=== PATIENT | male | born 1990 | race African-American/Black ===

== ENCOUNTER 2016-06-13 10:59 | Emergency (ER) | payer MEDICAID, OTHER ==
[2016-06-13] MEDS ORDERED: IPRATROPIUM-ALBUTEROL 3 ML NEB INHALATION STA (11:55)
--- NOTE | 2016-06-13 12:03 | ED ---
Fever HPI - General Chief Complaint: Fever Stated Complaint: Chest pain/cough Time Seen by Provider: 06/13/16 11:35 Source: patient, RN notes reviewed Mode of arrival: ambulatory Limitations: no limitations - History of Present Illness Initial Comments: States 25-year-old male presents emergency Department chief complaint URI symptoms. Patient states that he's been sick over the last 2 days. Patient went to fever, body aches, congestion and cough. Patient states his been taking ibuprofen for his fever. Patient denies ear pain, sore throat. Patient had multiple sick contacts. Patient is known drug ALLERGIES benign past medical history. - Related Data Home Medications Medication Instructions Recorded Confirmed D-Methorphan/PE/Acetaminophen 2 tab PO ONCE 06/13/16 06/13/16 [Tylenol Cold Max Day Caplet] Previous Rx's Medication Instructions Recorded Azithromycin [Zithromax Z-pack] 0 mg PO DIRECTED #1 pack 06/13/16 methylPREDNISolone [Medrol Dose 4 mg PO DIRECTED #1 pack 06/13/16 Pack] Allergies Allergy/AdvReac Type Severity Reaction Status Date / Time No Known Allergies Allergy Verified 06/13/16 11:36 Review of Systems ROS Statement: Those systems with pertinent positive or pertinent negative responses have been documented in the HPI. ROS Other: All systems not noted in ROS Statement are negative. Past Medical History Past Medical History: No Reported History History of Any Multi-Drug Resistant Organisms: None Reported Past Surgical History: No Surgical Hx Reported Past Psychological History: No Psychological Hx Reported Smoking Status: Current every day smoker Past Alcohol Use History: None Reported Past Drug Use History: Marijuana General Exam Limitations: no limitations General appearance: alert, in no apparent distress Head exam: Present: atraumatic, normocephalic, normal inspection Eye exam: Present: normal appearance, PERRL, EOMI. Absent: scleral icterus, conjunctival injection, periorbital swelling ENT exam: Present: normal exam, normal oropharynx, mucous membranes moist, TM's normal bilaterally, normal external ear exam Neck exam: Present: normal inspection, full ROM. Absent: tenderness, meningismus, lymphadenopathy Respiratory exam: Present: normal lung sounds bilaterally. Absent: respiratory distress, wheezes, rales, rhonchi, stridor Cardiovascular Exam: Present: regular rate, normal rhythm, normal heart sounds. Absent: systolic murmur, diastolic murmur, rubs, gallop, clicks Neurological exam: Present: alert, oriented X3, CN II-XII intact Skin exam: Present: warm, dry, intact, normal color. Absent: rash Course Vital Signs 06/13/16 06/13/16 06/13/16 11:13 12:18 12:23 Temperature 99.2 F 100.4 F H Pulse Rate 90 90 74 Respiratory 20 113 H Rate Blood Pressure 119/84 113/62 O2 Sat by Pulse 98 98 Oximetry 06/13/16 12:29 Temperature Pulse Rate 90 Respiratory Rate Blood Pressure O2 Sat by Pulse Oximetry Medical Decision Making - Medical Decision Making 25-year-old male present emergency department for cough congestion fever. Patient's influenza is negative. Patient does have some proximal muscle noted. Patient was treated for acute bronchitis. Patient will be discharged at this time. - Lab Data Lab Results 06/13/16 Range/Units 11:58 Influenza Type A RNA Not Detected (Not Detectd) Influenza Type B (PCR) Not Detected (Not Detectd) Disposition Clinical Impression: Acute bronchitis Disposition: HOME SELF-CARE Condition: Stable Instructions: Acute Bronchitis (ED) Additional Instructions: Please return to the Emergency Department if symptoms worsen or any other concerns. Prescriptions: Azithromycin [Zithromax Z-pack] 0 mg PO DIRECTED #1 pack methylPREDNISolone [Medrol Dose Pack] 4 mg PO DIRECTED #1 pack Time of Disposition: 12:50
--- NOTE | 2016-06-13 12:14 | XR ---
EXAMINATION TYPE: XR chest 2V DATE OF EXAM: 06/13/2016 12:08 PM COMPARISON: Prior chest x-ray August HISTORY: Cough and fever TECHNIQUE: Frontal and lateral views of the chest are obtained. FINDINGS: There is no focal air space opacity, pleural effusion, or pneumothorax seen. The cardiac silhouette size is within normal limits. The osseous structures are intact. IMPRESSION: No acute cardiopulmonary process. Follow-up as indicated.
[2016-06-13 13:06] VITALS: BP 118/62; PULSE 76; RESP 18; TEMP 99.9
== END 2016-06-13 13:06 | disposition home or self-care (01) ==
LOC: EC 10:59
DX: J20.9 Acute bronchitis, unspecified (principal); F17.200 Nicotine dependence, unspecified, uncomplicated
CPT/HCPCS: 71020; 87502; 94640; 99284

== ENCOUNTER 2016-06-21 09:36 | Observation (INO) | payer MEDICAID, OTHER ==
[2016-06-21] MEDS ORDERED: ACETAMINOPHEN TAB 500 MG TAB PO STA (10:18)
[2016-06-21] MEDS ORDERED: IBUPROFEN IV 600 MG in SODIUM CHLORIDE 0.9% 250 ML IV STA (10:18)
[2016-06-21] MEDS ORDERED: SODIUM CHLORIDE 0.9% 1,000 ML IV ONE ×2 (10:18→11:54)
[2016-06-21] MEDS ORDERED: ONDANSETRON 4 MG/2 ML VIAL IVP STA (10:20)
--- NOTE | 2016-06-21 10:20 | ED ---
General Adult HPI - General Chief complaint: Fever Stated complaint: flu symptoms Time Seen by Provider: 06/21/16 10:00 Source: patient, RN notes reviewed Mode of arrival: ambulatory Limitations: no limitations - History of Present Illness Initial comments: This is a 25-year-old male who presents emergency department stating he has a 2 day history of coughing body aches and fever. Patient states he did not get a flu shot. Patient states he also has been nauseous and has vomited a couple times. Patient denies any diarrhea. Patient denies any chest pain or palpitations. Patient denies any abdominal pain. Patient states she has a mild headache. He denies any numbness weakness. Patient denies any lightheadedness dizziness or near syncopal episode. Patient states his whole back aches but there is no specific area of pain. Patient denies any extremity pain swelling or skin lesions. - Related Data Home Medications Medication Instructions Recorded Confirmed Acetaminophen [Tylenol] 1,000 mg PO Q4-6H PRN 06/21/16 06/21/16 Albuterol Sulfate [Proair Hfa] 1 - 2 puff INHALATION RT-QID PRN 06/21/16 D-Methorphan/PE/Acetaminophen 2 cap PO ONCE PRN 06/21/16 06/21/16 [Vicks Dayquil Liquicaps] Allergies Allergy/AdvReac Type Severity Reaction Status Date / Time No Known Allergies Allergy Verified 06/21/16 10:20 Review of Systems ROS Statement: Those systems with pertinent positive or pertinent negative responses have been documented in the HPI. ROS Other: All systems not noted in ROS Statement are negative. Past Medical History Past Medical History: No Reported History History of Any Multi-Drug Resistant Organisms: None Reported Past Surgical History: No Surgical Hx Reported Past Psychological History: No Psychological Hx Reported Smoking Status: Current every day smoker Past Alcohol Use History: None Reported Past Drug Use History: Marijuana General Exam - General Exam Comments Initial Comments: GENERAL: Patient is well-developed and well-nourished. Patient is nontoxic and well- hydrated and is in mild distress. ENT: Neck is soft and supple. No significant lymphadenopathy is noted. Oropharynx is clear. Moist mucous membranes. Neck has full range of motion without eliciting any pain. EYES: The sclera were anicteric and conjunctiva were pink and moist. Extraocular movements were intact and pupils were equal round and reactive to light. Eyelids were unremarkable. PULMONARY: Unlabored respirations. Good breath sounds bilaterally. No audible rales rhonchi or wheezing was noted. CARDIOVASCULAR: There is a regular rate and rhythm without any murmurs gallops or rubs. ABDOMEN: Soft and nontender with normal bowel sounds. No palpable organomegaly was noted. There is no palpable pulsatile mass. SKIN: Skin is clear with no lesions or rashes and otherwise unremarkable. NEUROLOGIC: Patient is alert and oriented x3. Cranial nerves II through XII are grossly intact. Motor and sensory are also intact. Normal speech, volume and content. Symmetrical smile. MUSCULOSKELETAL: Normal extremities with adequate strength and full range of motion. No lower extremity swelling or edema. No calf tenderness. LYMPHATICS: No significant lymphadenopathy is noted PSYCHIATRIC: Normal psychiatric evaluation. Normal interpersonal interactions appears functionally intact in deals appropriately with others. No signs of depression. No signs of anxiety. Limitations: no limitations Course Vital Signs 06/21/16 09:50 Temperature 101.6 F H Pulse Rate 98 Respiratory 18 Rate Blood Pressure 106/79 O2 Sat by Pulse 97 Oximetry Medical Decision Making - Medical Decision Making Chest x-ray shows a right lower lobe pneumonia - Lab Data Result diagrams: 06/21/16 10:30 06/21/16 10:30 Lab Results 06/21/16 06/21/16 06/21/16 Range/Units 10:30 10:30 10:30 WBC 30.6 H* (3.8-10.6) k/uL RBC 4.65 (4.30-5.90) m/uL Hgb 14.2 (13.0-17.5) gm/dL Hct 41.7 (39.0-53.0) % MCV 89.7 (80.0-100.0) fL MCH 30.7 (25.0-35.0) pg MCHC 34.2 (31.0-37.0) g/dL RDW 13.0 (11.5-15.5) % Plt Count 376 (150-450) k/uL Neutrophils % (Manual) 76.5 % Band Neutrophils % 5.0 % Lymphocytes % (Manual) 6.5 % Monocytes % (Manual) 12.0 % Neutrophils # (Manual) 24.9 H (1.3-7.7) k/uL Lymphocytes # (Manual) 2.0 (1.0-4.8) k/uL Monocytes # (Manual) 3.7 H (0-1.0) k/uL Nucleated RBCs 0 (0-0) /100 WBC Manual Slide Review Performed Toxic Granulation Present Toxic Vacuolation Present RBC Morphology Normal Sodium 139 (137-145) mmol/L Potassium 4.2 (3.5-5.1) mmol/L Chloride 98 (98-107) mmol/L Carbon Dioxide 26 (22-30) mmol/L Anion Gap 15 mmol/L BUN 12 (9-20) mg/dL Creatinine 1.04 (0.66-1.25) mg/dL Est GFR (MDRD) Af Amer >60 (>60 ml/min/1.73 sqM) Est GFR (MDRD) Non-Af >60 (>60 ml/min/1.73 sqM) Glucose 109 H (74-99) mg/dL Calcium 9.8 (8.4-10.2) mg/dL Total Bilirubin 1.1 (0.2-1.3) mg/dL AST 29 (17-59) U/L ALT 33 (21-72) U/L Alkaline Phosphatase 73 (38-126) U/L Total Protein 8.1 (6.3-8.2) g/dL Albumin 4.5 (3.5-5.0) g/dL Influenza Type A RNA Not Detected (Not Detectd) Influenza Type B (PCR) Not Detected (Not Detectd) Disposition Clinical Impression: Pneumonia Disposition: ADMITTED IP TO THIS [facility] Referrals: None,Stated [Primary Care Provider] - 1-2 days Time of Disposition: 11:52
[2016-06-21 10:54] LABS: CH 30.3; HCT 41.7 % (39.0-53.0); HDW 2.11; HGB 14.2 gm/dL (13.0-17.5); Immature Gran Flag Marked; MCH 30.7 pg (25.0-35.0); MCHC 34.2 g/dL (31.0-37.0); MCV 89.7 fL (80.0-100.0); RBC 4.65 m/uL (4.30-5.90); WBC (Perox) 31.03
[2016-06-21 10:59] LABS: WBC 30.6 k/uL (3.8-10.6)
[2016-06-21 11:00] LABS: ALT 33 U/L (21-72); AST 29 U/L (17-59); Alkaline Phosphatase 73 U/L (38-126); Anion Gap 15 mmol/L; Blood Urea Nitrogen 12 mg/dL (9-20); Calcium 9.8 mg/dL (8.4-10.2); Carbon Dioxide 26 mmol/L (22-30); Chloride 98 mmol/L (98-107); Glucose 109 mg/dL (74-99); Non-African American GFR(MDRD) >60 (>60 ml/min/1.73 sqM); Potassium 4.2 mmol/L (3.5-5.1); Sodium 139 mmol/L (137-145); Total Bilirubin 1.1 mg/dL (0.2-1.3); Total Protein 8.1 g/dL (6.3-8.2)
--- NOTE | 2016-06-21 11:32 | XR ---
EXAMINATION TYPE: XR chest 2V DATE OF EXAM: 06/21/2016 11:15 AM COMPARISON: 06/13/2016 HISTORY: Difficulty breathing TECHNIQUE: Frontal and lateral views of the chest are obtained. FINDINGS: There is no focal air space opacity, pleural effusion, or pneumothorax seen. The cardiac silhouette size is within normal limits. The osseous structures are intact. IMPRESSION: No acute cardiopulmonary process.
[2016-06-21 11:41] LABS: Add Differential Manual Differential
[2016-06-21 11:43] LABS: Manual Review Performed; Nucleated Red Blood Cells 0 /100 WBC (0-0); RBC Morphology Normal; Total Cells Counted 200
[2016-06-21 11:44] LABS: Toxic Granulation Present; Toxic Vacuolation Present
[2016-06-21] MEDS ORDERED: LEVOFLOXACIN 750MG-D5W PMX 750 MG in DEXTROSE/WATER 1 150ML.BAG IVPB STA (11:49)
[2016-06-21] MEDS ORDERED: PNEUMONIA PROTOCOL UTILIZED 1 EACH MISC PO PRN (11:52)
[2016-06-21] MEDS ORDERED: MORPHINE SULFATE 2 MG/ML SYRINGE IVP ONE (11:56)
--- NOTE | 2016-06-21 13:25 | P.HPIM ---
History of Present Illness H&P Date: 06/21/16 Chief Complaint: Shortness of breath fever chills 25-year-old male presented on the day of admission to the emergency room with a chief complaint of waking up last night with generalized body aches fever chills nausea vomiting and inability keep fluids down. Patient stated he felt dizzy lightheaded like he could pass out. In the emergency room the temp was 101.6 area tachycardic heart rate in the 90s the white count of 30.6 chest x-ray suggest right lower lobe pneumonia patient has no significant past medical history Patient states that he was in the emergency room on June 13 at that time was treated for upper respiratory infection. Patient stated was given a prescription for Medrol Dosepak and a Z-Herve antibiotic he did take them as directed. He stated that he was told he had acute bronchitis. He stated that he completed the course of treatment but continued to feel worse came into the emergency room for the above-mentioned symptoms. no significant past medical history there is been no sick contacts and no other family members are sick influenza A and B was negative on June 13 repeat influenza A and B this admission was negative Review of Systems Essentially unremarkable except as mentioned in the present illness Past Medical History Past Medical History: No Reported History History of Any Multi-Drug Resistant Organisms: None Reported Past Surgical History: No Surgical Hx Reported Past Psychological History: No Psychological Hx Reported Smoking Status: Current every day smoker Past Alcohol Use History: None Reported Past Drug Use History: Marijuana Medications and Allergies Home Medications Medication Instructions Recorded Confirmed Type Acetaminophen [Tylenol] 1,000 mg PO Q4-6H PRN 06/21/16 06/21/16 History Albuterol Sulfate [Proair Hfa] 1 - 2 puff INHALATION RT-QID PRN 06/21/16 History D-Methorphan/PE/Acetaminophen 2 cap PO ONCE PRN 06/21/16 06/21/16 History [Vicks Dayquil Liquicaps] Allergies Allergy/AdvReac Type Severity Reaction Status Date / Time No Known Allergies Allergy Verified 06/21/16 10:20 Physical Exam Vitals: Vital Signs Temp Pulse Resp BP Pulse Ox 06/21/16 12:09 99.6 F 82 15 140/66 99 GENERAL APPEARANCE: 25-year-old -[place] male patient is alert, oriented 3, in no acute distress. VITAL SIGNS: Reviewed HEENT: Head is normocephalic and atraumatic. Pupils are equal and reactive. The nares are patent. Oropharynx is clear without lesions. NECK: Supple without lymphadenopathy. Traches midline. HEART: S1, S2. Regular rate and rhythm. No murmur noted LUNGS: No crackles or wheezes are heard. Adequate air movement bilaterally no cough noted ABDOMEN: Soft, nontender, nondistended with good bowel sounds. No peritoneal signs. No palpable organomegaly or masses. EXTREMITIES: Normal skin color and turgor. No cyanosis, rash, ulceration, clubbing or edema. Radial pedal pulses are 2/4 bilaterally. NEUROLOGICAL: No focal deficits. Strength and sensation are grossly intact. Results CBC & Chem 7: 06/21/16 10:30 06/21/16 10:30 Assessment and Plan Plan: Impression Present on admission fever chills tachycardic leukocytosis meet SIRS criteria suspect sepsis right lobe pneumonia failed outpatient treatment A recent admission June 13 to the emergency room treated for an upper respiratory infection with a Z-Herve and Medrol Dosepak no improvement Recent treatment for bronchitis Plan Consult infectious disease for the elevated leukocytosis Strep screen DuoNeb respiratory treatments as ordered GI and DVT prophylaxis Further recommendations pending The above dictated assessment and findings were discussed with dr carter . Impression and the plan of care have been dictated as directed. Rose Song nurse practitioner acting as a scribe for dr carter
[2016-06-21] MEDS: FAMOTIDINE 20 MG TAB PO SCH ×2 (14:26→20:07)
[2016-06-21] MEDS: traZODone HCL 50 MG TAB PO PRN (20:04)
[2016-06-22] MEDS: ACETAMINOPHEN TAB 325 MG TAB PO PRN (03:53)
--- NOTE | 2016-06-22 05:58 | HP ---
DATE OF ADMISSION: CHIEF COMPLAINT: Cough, fever, chills and pneumonitis. HISTORY OF PRESENT ILLNESS: This is the first admission for this 25-year-old male. He has had a cough and congestion for about 4 days. He was getting more short of breath and had a temp. He came to emergency room where he had an elevated white count and bronchopneumonia. He is otherwise healthy. He has never had asthma. REVIEW OF SYSTEMS: He has had no syncope, neurologic problems, difficulty with vision or the hearing, lung disease, asthma, heart disease, hypertension, abdominal pain, nausea, vomiting, hematemesis, jaundice, hepatitis, hematuria, frequency, diabetes, etc. Past medical history, family history, and personal and social histories reveal he has had no allergies. He is not on medication. He has had no surgery. He smokes 1 or 2 cigarettes a day. PHYSICAL EXAMINATION: Blood pressure 121/73 with a pulse of 88, respirations of 29 and temperature of 100. GENERAL: He appeared to be ( ), well developed, well nourished, no acute distress. Skin color is normal. Skin is warm and dry. Lymph nodes are not enlarged. Head, ears, eyes, nose, mouth, and throat were normal. Neck veins not distended. Thyroid is not enlarged. Chest demonstrates rales and rhonchi bilaterally. Cardiac exam is normal sinus rhythm with no murmurs. ABDOMEN: Soft and nontender. There are no masses. EXTREMITIES: Normal. NEUROLOGIC: He is intact. IMPRESSION: Bronchopneumonia. PLAN: 1. Bed rest. 2. IV fluids. 3. IV antibiotics. 4. Updrafts.
[2016-06-22] MEDS: FAMOTIDINE 20 MG TAB PO SCH ×2 (07:49→19:32)
--- NOTE | 2016-06-22 07:58 | XR ---
EXAMINATION TYPE: XR chest 2V DATE OF EXAM: 06/22/2016 7:46 AM COMPARISON: Chest x-ray from yesterday and older studies back through 2011. HISTORY: Pneumonia progress study. TECHNIQUE: Frontal and lateral views of the chest are obtained. FINDINGS: There is no new focal air space opacity, pleural effusion, or pneumothorax seen. Right me dial basilar opacity is unchanged. The cardiac silhouette size is within normal limits. The osseou s structures are intact. IMPRESSION: Possible right medial basilar infiltrate is unchanged. No new infiltrate is seen.
[2016-06-22 08:05] LABS: Basophils # (A) 0.1 k/uL (0-0.2); Basophils % (A) 0 %; CH 30.1; CHCM 32.7; Eosinophils # (A) 0.1 k/uL (0-0.7); Eosinophils % (A) 0 %; HCT 39.5 % (39.0-53.0); HDW 2.16; HGB 13.2 gm/dL (13.0-17.5); Luc # (Auto) 0.36; Luc % (Auto) 2; Lymphocytes # (A) 3.5 k/uL (1.0-4.8); Lymphocytes % (A) 20 %; MCHC 33.5 g/dL (31.0-37.0); MCV 92.7 fL (80.0-100.0); Mean Platelet Volume 6.7; Monocytes # (A) 0.9 k/uL (0-1.0); Monocytes % (A) 5 %; Neutrophils # (A) 12.7 k/uL (1.3-7.7); Neutrophils % (A) 73 %; RBC 4.26 m/uL (4.30-5.90); RDW 13.1 % (11.5-15.5); WBC 17.6 k/uL (3.8-10.6); WBC (Perox) 18.31
[2016-06-22] MEDS: LEVOFLOXACIN 750MG-D5W PMX 750 MG in DEXTROSE/WATER 1 150ML.BAG IVPB SCH (11:52)
[2016-06-22] MEDS: guaiFENesin-Coden 100-10MG/5ML 10 ML CUP PO PRN ×2 (13:40→19:32)
--- NOTE | 2016-06-22 17:31 | PN ---
DATE OF SERVICE: 06/22/2016 CHIEF COMPLAINT: Pneumonia. History of present illness: This gentleman is doing well and he is doing better. He is not coughing as much. ( ). PHYSICAL EXAMINATION: He has rales and rhonchi ( ) heard bilaterally. Cardiac exam normal. ( ). ABDOMEN: Soft, nontender. IMPRESSION: Pneumonitis. PLAN: No change in program.
[2016-06-22] MEDS: traZODone HCL 50 MG TAB PO PRN (19:32)
--- NOTE | 2016-06-22 22:18 | CONS ---
DATE OF CONSULTATION: 06/22/2016 REASON FOR CONSULTATION: Pneumonia, antibiotic recommendation. HISTORY OF PRESENT ILLNESS: The patient is a 25-year-old male who presented to the ER with chief complaint of generalized body aches, fever and chills, nausea, and inability to keep anything down. The patient also complaining of cough which is mostly dry in nature. No significant pleuritic chest pain. The patient was recently evaluated at the [facility]. The patient diagnosed with possible bronchitis and was discharged on a steroid and antibiotics. Patient is not sure about the name of the antibiotics. The patient on arrival to the ER did have a chest x-ray, the right mid lung base infiltrate. The patient did have an elevated white count of 30,000 with a fever of 101.6. The patient has been admitted to the hospital. He was started on Rocephin and Levaquin. I was asked to see the patient for further recommendations regarding antibiotic therapy. As of yesterday, the patient's fever has resolved. He is feeling slightly better. Still complaining of dry hacking cough and intensity the same. REVIEW OF SYSTEMS: CONSTITUTIONAL: Positive for weakness along with a fever. EYES: No complaint. ENT: No complaint. RESPIRATORY: As per HPI. CARDIOVASCULAR: Complaint. GENITOURINARY: No complaint. GASTROINTESTINAL: No complaint. MUSCULOSKELETAL: No complaint. INTEGUMENTARY: No complaint. PSYCHOLOGIC: No complaint. ENDOCRINE: No complaint. NEUROLOGIC: No complaint. PAST MEDICAL HISTORY: No major illnesses. PAST SURGICAL HISTORY: No surgeries. SOCIAL HISTORY: The patient is currently an every day smoker. Smokes about a pack a day. The patient denies any drink though admits to marijuana use. The patient is sexually active with a [facility] partner and denies any risk factors for HIV. ALLERGIES: No known drug allergies. MEDICATIONS: Currently the patient is on: 1. Tylenol. 2. Rocephin. 3. Pepcid. 4. Levofloxacin. 5. Trazodone. On examination, blood pressure is 106/58 with a pulse of 79, temperature 98.1. T-max is 101. He is 100% on room air. General description is a young male, lying in bed in no distress. No tachypnea or accessory muscle of respiration use. HEENT examination shows no pallor or scleral icterus. Oral mucous membrane is dry and pink and no thrush. NECK: Trachea central. There is no thyromegaly. LUNGS: Unlabored breathing. Some coarse breath sounds on the right side. No wheeze. HEART: S1, S2. Regular rate and rhythm. ABDOMEN: Soft, nontender. EXTREMITIES: No edema of feet. SKIN: No rash. No mass palpable. NEUROLOGICAL: The patient is awake, alert, oriented x3. Mood and affect normal. LABORATORY DATA: Hemoglobin is 13.2, white count down and the patient's white count on admission was 30,000 with a BUN of 12, creatinine 1.04. Influenza A and B has been negative. Blood cultures obtained, currently pending, sputum not collected. DIAGNOSTIC IMPRESSION AND PLAN: Patient with sepsis in a patient who presented to the hospital with fever of 101 degrees Fahrenheit. The patient also had elevated white count of 30,000 that could had been related to steroid the patient has been on, however, source of sepsis is right lobe pneumonia, likely community-acquired in view of overall response to the fever with Rocephin and Levaquin. Though the patient denied any risk factors for HIV and has refused HIV testing. PLAN: 1. Will try to obtain sputum for gram stain culture and sensitivity. 2. The patient will continue Rocephin 1 mg daily along with Levaquin. 3. Will order tesselon pearls for cough. 4. Will follow up on the clinical condition and cultures to further adjust the medication if needed. Thank you for this consultation. Will follow the patient along with you. DOE
[2016-06-23] MEDS: guaiFENesin-Coden 100-10MG/5ML 10 ML CUP PO PRN (05:13)
[2016-06-23] MEDS: ACETAMINOPHEN TAB 325 MG TAB PO PRN (05:13)
[2016-06-23 07:37] VITALS: RESP 18; TEMP 97.4
[2016-06-23] MEDS: FAMOTIDINE 20 MG TAB PO SCH (08:10)
[2016-06-23 09:50] LABS: Basophils % (A) 0 %; CH 30.1; CHCM 32.3; Eosinophils # (A) 0.1 k/uL (0-0.7); Eosinophils % (A) 1 %; HCT 38.1 % (39.0-53.0); HDW 2.16; Luc # (Auto) 0.23; Luc % (Auto) 3; Lymphocytes # (A) 2.4 k/uL (1.0-4.8); Lymphocytes % (A) 28 %; MCH 29.4 pg (25.0-35.0); MCHC 31.5 g/dL (31.0-37.0); MCV 93.4 fL (80.0-100.0); Mean Platelet Volume 6.2; Monocytes # (A) 0.5 k/uL (0-1.0); Monocytes % (A) 6 %; Neutrophils # (A) 5.4 k/uL (1.3-7.7); Neutrophils % (A) 62 %; RBC 4.08 m/uL (4.30-5.90); RDW 13.2 % (11.5-15.5); WBC 8.6 k/uL (3.8-10.6); WBC (Perox) 8.61
--- NOTE | 2016-06-23 11:06 | P.DS ---
Providers Date of admission: 06/21/16 11:53 Expected date of discharge: 06/23/16 Attending physician: Avelino Carter Consults: 06/21/16 13:04 Consult Physician Urgent Consulting Provider: Roro Melendez Consult Reason/Comments: Recommendations antibiotic Do you want consulting provider notified?: Yes Primary care physician: Stated None Hospital Course: Patient states that he was in the emergency room on June 13 at that time was treated for upper respiratory infection. Patient stated was given a prescription for Medrol Dosepak and a Z-Herve antibiotic he did take them as directed. He stated that he was told he had acute bronchitis. He stated that he completed the course of treatment but continued to feel worse came into the emergency room for the above-mentioned symptoms. no significant past medical history there is been no sick contacts and no other family members are sick influenza A and B was negative on June 13 repeat influenza A and B this admission was negative Symptoms significantly improve patient was started on IV antibiotic therapy monitored white count trend down attempt at the time of discharge was 97.4 the patient did have a strep culture done that was pending but the rapid strep screen was negative Impression discharge diagnose Present on admission leukocytosis suspect due to steroids taken one week prior Present on admission fever chills tachycardic leukocytosis meet SIRS criteria suspect sepsis right lobe pneumonia failed outpatient treatment A recent admission June 13 to the emergency room treated for an upper respiratory infection with a Z-Herve and Medrol Dosepak no improvement Recent treatment for bronchitis Persistent leukocytosis trending down History of asthma mild The above dictated assessment and findings were discussed with dr carter . Impression and the plan of care have been dictated as directed. Rose Song nurse practitioner acting as a scribe for dr carter ]. Plan - Discharge Summary New Discharge Prescriptions: Cefuroxime Axetil [Ceftin] 500 mg PO BID #20 tab Discharge Medication List Acetaminophen [Tylenol] 1,000 mg PO Q4-6H PRN 06/21/16 [History] Albuterol Sulfate [Proair Hfa] 1 - 2 puff INHALATION RT-QID PRN 06/21/16 [ History] D-Methorphan/PE/Acetaminophen [Vicks Dayquil Liquicaps] 2 cap PO ONCE PRN [History] Cefuroxime Axetil [Ceftin] 500 mg PO BID #20 tab 06/23/16 [Rx] Follow up Appointment(s)/Referral(s): None,Stated [Primary Care Provider] - 1-2 days Avelino Carter MD [STAFF PHYSICIAN] - 06/26/16 Discharge Disposition: HOME SELF-CARE
[2016-06-23] MEDS: LEVOFLOXACIN 750MG-D5W PMX 750 MG in DEXTROSE/WATER 1 150ML.BAG IVPB SCH (11:10)
[2016-06-23] MEDS ORDERED: ONDANSETRON 4 MG TAB PO ONE (12:49)
[2016-06-23] MEDS ORDERED: ONDANSETRON ODT 4 MG TAB PO ONE (13:15)
--- NOTE | 2016-06-23 14:29 | PN ---
CHIEF COMPLAINT: Pneumonitis. HISTORY OF PRESENT ILLNESS: The gentleman is doing well. He is feeling better and is not coughing up very much. He has been afebrile and he has not ( ) short of breath. PHYSICAL EXAM: Breath sounds are quite good. Cardiac exam is normal. IMPRESSION: Resolving bronchopneumonia. PLAN: Probably home later today and this will be arranged by the nurse practitioner.
[2016-06-23 14:51] VITALS: BP 121/75; PULSE 61
--- NOTE | 2016-06-23 16:39 | PN ---
DATE OF SERVICE: 06/23/2016 Reason for follow-up: Community acquired pneumonia. INTERVAL HISTORY: The patient is afebrile and while his breathing has improved, cough is significantly improved. Denies any chest pain, abdominal pain. He did have feeling nauseated after he had his supper but no vomiting and no diarrhea. On examination, blood pressure is 112/74 with a pulse of 58, temperature 97.4, he is 100% on room air. General description is a young male, lying in bed in no distress. RESPIRATORY SYSTEM: Unlabored breathing. Clear to auscultation anteriorly. HEART: S1, S2 regular rate and rhythm. ABDOMEN: Soft, no tenderness. EXTREMITIES: No edema of feet. LABS: Hemoglobin is 12, with a white count of 8.6. Blood cultures have been negative. Sputum culture is currently pending. DIAGNOSTIC IMPRESSION AND PLAN: Patient admitted to hospital with sepsis with fever with elevated white count, source likely pneumonia, community acquired. However, did well on Rocephin and Levaquin. Plan to finish therapy with p.o. Ceftin 500 mg twice a day for another 10 days with further outpatient follow-up. [facility]
== END 2016-06-23 15:08 | disposition home or self-care (01) ==
LOC: EC 09:36 → INTOOBSV 11:53 → 4MS4W 11:53
PROVIDERS: ADMIT Family Medicine; ATTEND Family Medicine
DX: J18.0 Bronchopneumonia, unspecified organism (principal); J45.909 Unspecified asthma, uncomplicated; J06.9 Acute upper respiratory infection, unspecified; D72.829 Elevated white blood cell count, unspecified; R50.9 Fever, unspecified; M54.9 Dorsalgia, unspecified; R00.0 Tachycardia, unspecified; R11.2 Nausea with vomiting, unspecified; F12.90 Cannabis use, unspecified, uncomplicated; F17.200 Nicotine dependence, unspecified, uncomplicated; Z79.899 Other long term (current) drug therapy
CPT/HCPCS: 96361 ×2; 96365 ×2; 96375 ×3; 36415; 99284 ×2; 80053; 83605; 85025 ×3; 87040; 87070; 87205; 87081; 87430; 87502; 71020 ×2; G0378 ×3; J2405; J0696 ×3; J2270; J1956 ×3; J1741; 96366; 96367

== ENCOUNTER 2018-08-18 07:06 | Emergency (ER) | payer MEDICAID, OTHER ==
[2018-08-18 07:26] VITALS: TEMP 98.4
[2018-08-18 07:39] VITALS: RESP 18
--- NOTE | 2018-08-18 07:44 | ED ---
General Adult HPI - General Chief complaint: Upper Respiratory Infection Stated complaint: coughing Time Seen by Provider: 08/18/18 07:10 Source: patient, RN notes reviewed Mode of arrival: ambulatory Limitations: no limitations - History of Present Illness Initial comments: This is a 28-year-old male who presents emergency Department complaining of 2 d ay history of sore throat and states since yesterday he also has been coughing and coughing up some sputum. Patient denies any shortness of breath or difficulty breathing. Patient denies any fever chills per patient denies any chest pain or soreness. Patient denies any abdominal pain patient denies any nausea vomiting. Patient denies any headache patient denies numbness weakness. Patient denies any lightheadedness. Patient denies any rashes. Patient denies any back pain. Patient denies any swelling to the legs or calf tenderness. - Related Data Home Medications Medication Instructions Recorded Confirmed Acetaminophen [Tylenol] 1,000 mg PO Q4-6H PRN 06/21/16 06/21/16 Albuterol Sulfate [Proair Hfa] 1 - 2 puff INHALATION RT-QID PRN 06/21/16 D-Methorphan/PE/Acetaminophen 2 cap PO ONCE PRN 06/21/16 06/21/16 [Vicks Dayquil Liquicaps] Previous Rx's Medication Instructions Recorded Cefuroxime Axetil [Ceftin] 500 mg PO BID #20 tab 06/23/16 Allergies Allergy/AdvReac Type Severity Reaction Status Date / Time No Known Allergies Allergy Verified 08/18/18 07:26 Review of Systems ROS Statement: Those systems with pertinent positive or pertinent negative responses have been documented in the HPI. ROS Other: All systems not noted in ROS Statement are negative. Past Medical History Past Medical History: No Reported History History of Any Multi-Drug Resistant Organisms: None Reported Past Surgical History: No Surgical Hx Reported Past Psychological History: No Psychological Hx Reported Smoking Status: Current every day smoker Past Alcohol Use History: None Reported Past Drug Use History: Marijuana General Exam - General Exam Comments Initial Comments: GENERAL: Patient is well-developed and well-nourished. Patient is nontoxic and well- hydrated and is in no acute distress. ENT: Neck is soft and supple. No significant lymphadenopathy is noted. Oropharynx is clear. Moist mucous membranes. Neck has full range of motion without eliciting any pain. EYES: The sclera were anicteric and conjunctiva were pink and moist. Extraocular movements were intact and pupils were equal round and reactive to light. Eyelids were unremarkable. PULMONARY: Unlabored respirations. Good breath sounds bilaterally. No audible rales rhon chi or wheezing was noted. CARDIOVASCULAR: There is a regular rate and rhythm without any murmurs gallops or rubs. ABDOMEN: Soft and nontender with normal bowel sounds. SKIN: Skin is clear with no lesions or rashes and otherwise unremarkable. NEUROLOGIC: Patient is alert and oriented x3. Cranial nerves II through XII are grossly intact. Motor and sensory are also intact. Normal speech, volume and content. Symmetrical smile. MUSCULOSKELETAL: Normal extremities with adequate strength and full range of motion. No lower extremity swelling or edema. No calf tenderness. LYMPHATICS: No significant lymphadenopathy is noted PSYCHIATRIC: Normal psychiatric evaluation. Limitations: no limitations Course Vital Signs 08/18/18 08/18/18 08/18/18 07:23 07:36 10:09 Temperature 98.4 F Pulse Rate 77 57 L Respiratory 16 18 18 Rate Blood Pressure 122/80 118/82 O2 Sat by Pulse 97 100 Oximetry Medical Decision Making - Medical Decision Making I read the nurse's notes and she indicated the patient had some hemoptysis I spoke with the patient he said he did have one episode where he coughed up some blood. Chest x-ray shows no acute abnormality. Patient's d-dimer was mildly elevated so I did a CAT scan CAT scan showed no PE. - Lab Data Result diagrams: 08/18/18 09:14 08/18/18 09:14 Lab Results 08/18/18 08/18/18 08/18/18 Range/Units 07:46 09:14 09:14 WBC 11.4 H (3.8-10.6) k/uL RBC 4.59 (4.30-5.90) m/uL Hgb 13.9 (13.0-17.5) gm/dL Hct 42.5 (39.0-53.0) % MCV 92.5 (80.0-100.0) fL MCH 30.2 (25.0-35.0) pg MCHC 32.7 (31.0-37.0) g/dL RDW 14.3 (11.5-15.5) % Plt Count 305 (150-450) k/uL Neutrophils % 70 % Lymphocytes % 19 % Monocytes % 7 % Eosinophils % 2 % Basophils % 0 % Neutrophils # 8.0 H (1.3-7.7) k/uL Lymphocytes # 2.2 (1.0-4.8) k/uL Monocytes # 0.8 (0-1.0) k/uL Eosinophils # 0.2 (0-0.7) k/uL Basophils # 0.0 (0-0.2) k/uL D-Dimer (<0.60) mg/L FEU Sodium 142 (137-145) mmol/L Potassium 4.6 (3.5-5.1) mmol/L Chloride 109 H (98-107) mmol/L Carbon Dioxide 29 (22-30) mmol/L Anion Gap 4 mmol/L BUN 8 L (9-20) mg/dL Creatinine 0.90 (0.66-1.25) mg/dL Est GFR (CKD-EPI)AfAm >90 (>60 ml/min/1.73 sqM) Est GFR (CKD-EPI)NonAf >90 (>60 ml/min/1.73 sqM) Glucose 99 (74-99) mg/dL Calcium 9.6 (8.4-10.2) mg/dL Total Bilirubin 0.5 (0.2-1.3) mg/dL AST 22 (17-59) U/L ALT 19 L (21-72) U/L Alkaline Phosphatase 52 (38-126) U/L Total Protein 6.5 (6.3-8.2) g/dL Albumin 3.9 (3.5-5.0) g/dL Group A Strep Rapid Negative (Negative) 08/18/18 Range/Units 09:24 WBC (3.8-10.6) k/uL RBC (4.30-5.90) m/uL Hgb (13.0-17.5) gm/dL Hct (39.0-53.0) % MCV (80.0-100.0) fL MCH (25.0-35.0) pg MCHC (31.0-37.0) g/dL RDW (11.5-15.5) % Plt Count (150-450) k/uL Neutrophils % % Lymphocytes % % Monocytes % % Eosinophils % % Basophils % % Neutrophils # (1.3-7.7) k/uL Lymphocytes # (1.0-4.8) k/uL Monocytes # (0-1.0) k/uL Eosinophils # (0-0.7) k/uL Basophils # (0-0.2) k/uL D-Dimer 0.63 H (<0.60) mg/L FEU Sodium (137-145) mmol/L Potassium (3.5-5.1) mmol/L Chloride (98-107) mmol/L Carbon Dioxide (22-30) mmol/L Anion Gap mmol/L BUN (9-20) mg/dL Creatinine (0.66-1.25) mg/dL Est GFR (CKD-EPI)AfAm (>60 ml/min/1.73 sqM) Est GFR (CKD-EPI)NonAf (>60 ml/min/1.73 sqM) Glucose (74-99) mg/dL Calcium (8.4-10.2) mg/dL Total Bilirubin (0.2-1.3) mg/dL AST (17-59) U/L ALT (21-72) U/L Alkaline Phosphatase (38-126) U/L Total Protein (6.3-8.2) g/dL Albumin (3.5-5.0) g/dL Group A Strep Rapid (Negative) Disposition Clinical Impression: Upper respiratory infection Disposition: HOME SELF-CARE Condition: Good Instructions (If sedation given, give patient instructions): Upper Respiratory Infection (ED) Is patient prescribed a controlled substance at d/c from ED?: No Referrals: None,Stated [Primary Care Provider] - 1-2 days Time of Disposition: 11:15
--- NOTE | 2018-08-18 08:02 | XR ---
EXAMINATION TYPE: XR chest 2V DATE OF EXAM: 08/18/2018 HISTORY: Difficulty breathing . REFERENCE: Previous study dated 06/22/2016. FINDINGS: The lungs are clear. Pleural space are clear. The heart is not enlarged. IMPRESSION: NORMAL CHEST.
[2018-08-18 09:26] LABS: Basophils % (A) 0 %; Eosinophils # (A) 0.2 k/uL (0-0.7); Eosinophils % (A) 2 %; HCT 42.5 % (39.0-53.0); HGB 13.9 gm/dL (13.0-17.5); Lymphocytes # (A) 2.2 k/uL (1.0-4.8); Lymphocytes % (A) 19 %; MCH 30.2 pg (25.0-35.0); MCHC 32.7 g/dL (31.0-37.0); MCV 92.5 fL (80.0-100.0); Mean Platelet Volume 6.7; Monocytes # (A) 0.8 k/uL (0-1.0); Monocytes % (A) 7 %; Neutrophils % (A) 70 %; Platelet Count 305 k/uL (150-450); RBC 4.59 m/uL (4.30-5.90); RDW 14.3 % (11.5-15.5); WBC 11.4 k/uL (3.8-10.6)
[2018-08-18 09:35] LABS: ALT 19 U/L (21-72); AST 22 U/L (17-59); Albumin 3.9 g/dL (3.5-5.0); Alkaline Phosphatase 52 U/L (38-126); Anion Gap 4 mmol/L; Blood Urea Nitrogen 8 mg/dL (9-20); Calcium 9.6 mg/dL (8.4-10.2); Carbon Dioxide 29 mmol/L (22-30); Chloride 109 mmol/L (98-107); Glucose 99 mg/dL (74-99); Potassium 4.6 mmol/L (3.5-5.1); Sodium 142 mmol/L (137-145); Total Bilirubin 0.5 mg/dL (0.2-1.3); Total Protein 6.5 g/dL (6.3-8.2)
[2018-08-18 10:12] VITALS: BP 118/82; PULSE 57
--- NOTE | 2018-08-18 10:51 | CT ---
EXAMINATION TYPE: CT chest angio for PE DATE OF EXAM: 08/18/2018 COMPARISON: None. HISTORY: Coughing, chest pain and possible pe CT DLP: 443.4 mGycm Automated exposure control for dose reduction was used. CONTRAST: CT Chest for pulmonary embolism performed with without and with IV Contrast, patient injected with 10 0 ml mL of Isovue 370. FINDINGS: Visualized portions of the lungs are clear. There is no significant axillary, mediastinal or hilar adenopathy. There is no evidence of pulmonary embolus. The aorta is normal in size without evidence of dissection. The heart is mildly enlarged. There is no pleural or pericardial fluid. Visualized portions of the upper abdomen are unremarkable. No bony lesion is seen. IMPRESSION: 1. THIS EXAMINATION IS NEGATIVE FOR PULMONARY EMBOLUS. 2. MILD CARDIOMEGALY.
== END 2018-08-18 11:24 | disposition home or self-care (01) ==
LOC: EC 07:06
DX: J06.9 Acute upper respiratory infection, unspecified (principal); R04.2 Hemoptysis; F17.200 Nicotine dependence, unspecified, uncomplicated
CPT/HCPCS: 36415; 85379; 80053; 85025; 87081; 87430; 71046; 71275; 99284; Q9967

== ENCOUNTER 2019-02-24 06:20 | Emergency (ER) | payer OTHER ==
[2019-02-24 06:26] VITALS: BP 117/74; PULSE 92; RESP 20; TEMP 98.7
[2019-02-24] MEDS ORDERED: diphenhydrAMINE 50 MG/ML 1 ML VIAL IVP STA (06:28)
[2019-02-24] MEDS ORDERED: ONDANSETRON 4 MG/2 ML VIAL IVP STA (06:28)
[2019-02-24] MEDS ORDERED: SODIUM CHLORIDE 0.9% 2,000 ML IV STA (06:28)
[2019-02-24] MEDS ORDERED: KETOROLAC 30 MG/ML 1 ML VIAL IVP STA (06:28)
[2019-02-24] MEDS ORDERED: ONDANSETRON 4 MG ODT STARTER PACK 2 TAB BTL PO STA (06:35)
[2019-02-24] MEDS ORDERED: ONDANSETRON ODT 4 MG TAB PO STA (06:35)
--- NOTE | 2019-02-24 06:39 | ED ---
Nausea/Vomiting/Diarrhea HPI - General Chief complaint: Nausea/Vomiting/Diarrhea Stated complaint: Vomiting Time Seen by Provider: 02/24/19 06:27 Source: patient, family, RN notes reviewed Mode of arrival: ambulatory Limitations: no limitations - History of Present Illness Initial comments: 28-year-old male present emergency from chief complaint of nausea vomiting. Patient states symptoms started roughly 4 hours though he's had 4 episodes of emesis. Patient has no abdominal pain. Denies fever, chest pain, shortness breath, diarrhea, constipation, dysuria hematuria. Patient states that his son had symptoms 2 days ago. Patient is concerned has he has work this morning. has NO KNOWN DRUG ALLERGIES denies any significant past medical history other than seasonal ALLERGIES. - Related Data Home Medications Medication Instructions Recorded Confirmed Acetaminophen [Tylenol] 1,000 mg PO Q4-6H PRN 06/21/16 06/21/16 Albuterol Sulfate [Proair Hfa] 1 - 2 puff INHALATION RT-QID PRN 06/21/16 06/21/16 D-Methorphan/PE/Acetaminophen 2 cap PO ONCE PRN 06/21/16 06/21/16 [Vicks Dayquil Liquicaps] Previous Rx's Medication Instructions Recorded Cefuroxime Axetil [Ceftin] 500 mg PO BID #20 tab 06/23/16 Ondansetron Odt [Zofran Odt] 4 mg PO Q8HR PRN #14 tab 02/24/19 Allergies Allergy/AdvReac Type Severity Reaction Status Date / Time No Known Allergies Allergy Verified 02/24/19 06:26 Review of Systems ROS Statement: Those systems with pertinent positive or pertinent negative responses have been documented in the HPI. ROS Other: All systems not noted in ROS Statement are negative. Past Medical History Past Medical History: No Reported History History of Any Multi-Drug Resistant Organisms: None Reported Past Surgical History: No Surgical Hx Reported Past Psychological History: No Psychological Hx Reported Smoking Status: Current every day smoker Past Alcohol Use History: None Reported Past Drug Use History: Marijuana General Exam Limitations: no limitations General appearance: alert, in no apparent distress Head exam: Present: atraumatic, normocephalic, normal inspection Eye exam: Present: normal appearance, PERRL, EOMI. Absent: scleral icterus, conjunctival injection, periorbital swelling ENT exam: Present: normal exam, normal oropharynx, mucous membranes moist, TM's normal bilaterally, normal external ear exam Neck exam: Present: normal inspection, full ROM. Absent: tenderness, menin gismus, lymphadenopathy Respiratory exam: Present: normal lung sounds bilaterally. Absent: respiratory distress, wheezes, rales, rhonchi, stridor Cardiovascular Exam: Present: regular rate, normal rhythm, normal heart sounds. Absent: systolic murmur, diastolic murmur, rubs, gallop, clicks GI/Abdominal exam: Present: soft, normal bowel sounds. Absent: distended, tenderness, guarding, rebound, rigid Back exam: Absent: CVA tenderness (R), CVA tenderness (L) Neurological exam: Present: alert, oriented X3 Course Vital Signs 02/24/19 06:22 Temperature 98.7 F Pulse Rate 92 Respiratory 20 Rate Blood Pressure 117/74 O2 Sat by Pulse 100 Oximetry Medical Decision Making - Medical Decision Making Patient's vitals are stable, patient has no significant physical findings has no abdominal pain. Patient has a viral infection colitis. Patient son had some symptoms and which resolved on its own at home. Patient offered IV MS patient declines. Patient given Zofran will be discharged with Zofran. Disposition Clinical Impression: Nausea & vomiting Disposition: HOME SELF-CARE Condition: Stable Instructions (If sedation given, give patient instructions): Acute Nausea and Vomiting (ED) Additional Instructions: Please return to the Emergency Department if symptoms worsen or any other concerns. Prescriptions: Ondansetron Odt [Zofran Odt] 4 mg PO Q8HR PRN #14 tab PRN Reason: Nausea Is patient prescribed a controlled substance at d/c from ED?: No Referrals: None,Stated [Primary Care Provider] - 1-2 days Time of Disposition: 06:38
== END 2019-02-24 06:46 | disposition home or self-care (01) ==
LOC: EC 06:20
DX: R11.2 Nausea with vomiting, unspecified (principal); F17.200 Nicotine dependence, unspecified, uncomplicated
CPT/HCPCS: 99283; S0119

== ENCOUNTER 2020-03-22 18:59 | Emergency (ER) | payer OTHER ==
[2020-03-22] MEDS ORDERED: ALBUTEROL HFA INHALER INHALATION STA (19:21)
[2020-03-22 19:37] LABS: Basophils % (A) 0 %; Eosinophils # (A) 0.1 k/uL (0-0.7); Eosinophils % (A) 1 %; HCT 43.4 % (39.0-53.0); HGB 14.5 gm/dL (13.0-17.5); Lymphocytes # (A) 1.5 k/uL (1.0-4.8); Lymphocytes % (A) 10 %; MCH 30.4 pg (25.0-35.0); MCHC 33.4 g/dL (31.0-37.0); MCV 90.9 fL (80.0-100.0); Mean Platelet Volume 6.6; Monocytes # (A) 0.9 k/uL (0-1.0); Monocytes % (A) 6 %; Neutrophils # (A) 13.1 k/uL (1.3-7.7); Neutrophils % (A) 83 %; Platelet Count 274 k/uL (150-450); RBC 4.78 m/uL (4.30-5.90); RDW 12.8 % (11.5-15.5); WBC 15.8 k/uL (3.8-10.6)
[2020-03-22 19:46] LABS: ALT 13 U/L (4-49); AST 25 U/L (17-59); African American GFR (CKD) >90 (>60 ml/min/1.73 sqM); Albumin 4.6 g/dL (3.5-5.0); Alkaline Phosphatase 64 U/L (38-126); Anion Gap 7 mmol/L; Blood Urea Nitrogen 11 mg/dL (9-20); Calcium 9.4 mg/dL (8.4-10.2); Carbon Dioxide 24 mmol/L (22-30); Chloride 105 mmol/L (98-107); Glucose 123 mg/dL (74-99); Non-African American GFR(CKD) >90 (>60 ml/min/1.73 sqM); Potassium 4.7 mmol/L (3.5-5.1); Sodium 136 mmol/L (137-145); Total Bilirubin 0.5 mg/dL (0.2-1.3)
[2020-03-22 19:54] LABS: D-Dimer 0.25 mg/L FEU (<0.60); Partial Thromboplastin Time 23.9 sec (22.0-30.0); Prothrombin Time 10.1 sec (9.0-12.0)
--- NOTE | 2020-03-22 19:58 | XR ---
EXAMINATION TYPE: XR chest 1V portable DATE OF EXAM: 03/22/2020 COMPARISON: 08/18/2018 HISTORY: Cough TECHNIQUE: Single view FINDINGS: Heart and mediastinum are normal. Lungs are clear. Diaphragm is normal. Bony thorax appears normal. IMPRESSION: Normal chest. No change.
--- NOTE | 2020-03-22 20:10 | ED ---
SOB HPI - General Chief Complaint: Shortness of Breath Stated Complaint: SOB Time Seen by Provider: 03/22/20 19:00 Source: patient, EMS Mode of arrival: EMS Limitations: no limitations - History of Present Illness Initial Comments: Patient is a 29-year-old male with no past medical history presents emergency room with reported shortness of breath. Patient states for the past 2 days he has had general fatigue, muscle aches and shortness of breath. Denies any sick contacts or similar symptoms. Admits to nonproductive cough and sore throat. Patient went to urgent cares was tested for strep, Covid and influenza. States they're all negative. They put him on antibiotics and steroids. Patient went home and stated that the course the day he felt like his breathing got worse on and therefore he called an ambulance. Underlying lung conditions. No fevers or chills. No other alleviating, precipitating or modifying factors - Related Data Home Medications Medication Instructions Recorded Confirmed Promethazine/Dextromethorphan 10 ml PO Q6H PRN 03/22/20 03/22/20 [Promethazine-Dm Syrup] methylPREDNISolone Dose Pack See Taper PO DIRECTED 03/22/20 03/22/20 [Medrol Dose Pack] Allergies Allergy/AdvReac Type Severity Reaction Status Date / Time No Known Allergies Allergy Verified 03/22/20 20:07 Review of Systems ROS Statement: Those systems with pertinent positive or pertinent negative responses have been documented in the HPI. ROS Other: All systems not noted in ROS Statement are negative. Past Medical History Past Medical History: Pneumonia History of Any Multi-Drug Resistant Organisms: None Reported Past Surgical History: No Surgical Hx Reported Past Psychological History: No Psychological Hx Reported Smoking Status: Former smoker Past Alcohol Use History: None Reported Past Drug Use History: Marijuana General Exam Limitations: no limitations Course Vital Signs 03/22/20 03/22/20 19:01 20:31 Temperature 98.5 F 98.1 F Pulse Rate 85 74 Respiratory 18 16 Rate Blood Pressure 120/83 117/76 O2 Sat by Pulse 98 97 Oximetry Medical Decision Making - Medical Decision Making Upon arrival patient is placed in room 3. A thorough history and physical exam was performed. Laboratory studies are conducted and patient had a chest x-ray performed. Did offer to stop the patient once again for Covid and influenza however he refused. Laboratory studies demonstrate a white count of 15.8. Chest x-ray demonstrates no acute findings. Results are discussed the patient. He was given albuterol inhaler. Patient is instructed to follow-up with his primary care doctor in 2-4 days. Quarantine until his symptoms improve when he gets his Covid results back. Return to the emergency room for any new or worsening symptoms. Patient was discharged home in stable condition - Lab Data Result diagrams: 03/22/20 19:23 03/22/20 19:23 Lab Results 03/22/20 03/22/20 03/22/20 Range/Units 19:23 19:23 19:23 WBC 15.8 H (3.8-10.6) k/uL RBC 4.78 (4.30-5.90) m/uL Hgb 14.5 (13.0-17.5) gm/dL Hct 43.4 (39.0-53.0) % MCV 90.9 (80.0-100.0) fL MCH 30.4 (25.0-35.0) pg MCHC 33.4 (31.0-37.0) g/dL RDW 12.8 (11.5-15.5) % Plt Count 274 (150-450) k/uL MPV 6.6 Neutrophils % 83 % Lymphocytes % 10 % Monocytes % 6 % Eosinophils % 1 % Basophils % 0 % Neutrophils # 13.1 H (1.3-7.7) k/uL Lymphocytes # 1.5 (1.0-4.8) k/uL Monocytes # 0.9 (0-1.0) k/uL Eosinophils # 0.1 (0-0.7) k/uL Basophils # 0.0 (0-0.2) k/uL PT 10.1 (9.0-12.0) sec INR 1.0 (<1.2) APTT 23.9 (22.0-30.0) sec D-Dimer 0.25 (<0.60) mg/L FEU Sodium 136 L (137-145) mmol/L Potassium 4.7 (3.5-5.1) mmol/L Chloride 105 (98-107) mmol/L Carbon Dioxide 24 (22-30) mmol/L Anion Gap 7 mmol/L BUN 11 (9-20) mg/dL Creatinine 1.03 (0.66-1.25) mg/dL Est GFR (CKD-EPI)AfAm >90 (>60 ml/min/1.73 sqM) Est GFR (CKD-EPI)NonAf >90 (>60 ml/min/1.73 sqM) Glucose 123 H (74-99) mg/dL Calcium 9.4 (8.4-10.2) mg/dL Total Bilirubin 0.5 (0.2-1.3) mg/dL AST 25 (17-59) U/L ALT 13 (4-49) U/L Alkaline Phosphatase 64 (38-126) U/L Total Protein 8.0 (6.3-8.2) g/dL Albumin 4.6 (3.5-5.0) g/dL Disposition Clinical Impression: Dyspnea, Respiratory insufficiency Disposition: HOME SELF-CARE Condition: Stable Instructions (If sedation given, give patient instructions): Dyspnea (ED) Additional Instructions: Quarantine all you have symptoms. Use the inhaler every 4 hours. Take the steroids and antibiotics as directed. Return to the emergency room for any new or worsening symptoms Is patient prescribed a controlled substance at d/c from ED?: No Referrals: None,Stated [Primary Care Provider] - 1-2 days Time of Disposition: 20:10
[2020-03-22 20:33] VITALS: BP 117/76; PULSE 74; RESP 16; TEMP 98.1
== END 2020-03-22 20:33 | disposition home or self-care (01) ==
LOC: EC 18:59
DX: R06.89 Other abnormalities of breathing (principal); R06.00 Dyspnea, unspecified; R06.02 Shortness of breath; R05 Cough; Z87.891 Personal history of nicotine dependence; Z20.828 Contact with and (suspected) exposure to other viral communicable diseases
CPT/HCPCS: 36415; 71045; 80053; 85025; 85379; 85610; 85730; 93005; 94640; 99285

== ENCOUNTER 2020-06-02 04:14 | Observation (INO) | payer OTHER ==
[2020-06-02] MEDS ORDERED: cefTRIAXone 1,000 MG VIAL (IM USE) IM STA (04:16)
[2020-06-02] MEDS ORDERED: SODIUM CHLORIDE 0.9% 1,000 ML IV STA ×2 (04:29)
[2020-06-02] MEDS ORDERED: KETOROLAC 15 MG/ML 1 ML VIAL IVP STA (04:29)
[2020-06-02] MEDS ORDERED: MORPHINE SULFATE 4 MG/ML SYRINGE IV STA (04:29)
[2020-06-02] MEDS ORDERED: cefTRIAXone IN SWFI 1,000 MG/10 ML SYRINGE IVP STA (04:30)
--- NOTE | 2020-06-02 04:30 | ED ---
Male Urogenital HPI - General Chief complaint: Urogenital Stated complaint: Male Time Seen by Provider: 06/02/20 04:15 Source: patient, RN notes reviewed, old records reviewed Mode of arrival: ambulatory Limitations: no limitations - History of Present Illness Initial comments: This is a 29-year-old male DF for evaluation patient presents today for e valuation of severe testicular pain, persistent testicular pain for the last 4 days. He was seen at [facility] [place] for same evaluation. He recently ran out of his pain medication and has been taking the antibiotic as prescribed. Being on pain medication as. Worsening pain, still with mild dysuria. Had significant swelling of the right testicle. Face. There is no position he can't get comfortable in. MD Complaint: testicle pain, testicle swelling, dysuria -: days(s) (4) Location: right testicle Radiation: none Severity: severe Severity scale (1-10): 10 Quality: aching, sharp Consistency: constant Improves with: none Worsens with: none Reports: denies other symptoms - Related Data Home Medications Medication Instructions Recorded Confirmed Promethazine/Dextromethorphan 10 ml PO Q6H PRN 03/22/20 03/22/20 [Promethazine-Dm Syrup] methylPREDNISolone Dose Pack See Taper PO DIRECTED 03/22/20 03/22/20 [Medrol Dose Pack] Allergies Allergy/AdvReac Type Severity Reaction Status Date / Time No Known Allergies Allergy Verified 06/02/20 04:21 Review of Systems ROS Statement: Those systems with pertinent positive or pertinent negative responses have been documented in the HPI. ROS Other: All systems not noted in ROS Statement are negative. Past Medical History Past Medical History: Pneumonia History of Any Multi-Drug Resistant Organisms: None Reported Past Surgical History: No Surgical Hx Reported Past Psychological History: No Psychological Hx Reported Smoking Status: Current every day smoker Past Alcohol Use History: None Reported Past Drug Use History: Marijuana General Exam Limitations: no limitations General appearance: alert, in no apparent distress Head exam: Present: atraumatic, normocephalic, normal inspection Eye exam: Present: normal appearance, PERRL, EOMI. Absent: scleral icterus, conjunctival injection, periorbital swelling ENT exam: Present: normal exam, mucous membranes moist Neck exam: Present: normal inspection. Absent: tenderness, meningismus, lymphadenopathy Respiratory exam: Present: normal lung sounds bilaterally. Absent: respiratory distress, wheezes, rales, rhonchi, stridor Cardiovascular Exam: Present: regular rate, normal rhythm, normal heart sounds. Absent: systolic murmur, diastolic murmur, rubs, gallop, clicks GI/Abdominal exam: Present: soft, normal bowel sounds. Absent: distended, tenderness, guarding, rebound, rigid exam: Present: scrotal swelling, vertical testicular lie, other (significant pain) Extremities exam: Present: normal inspection, full ROM, normal capillary refill. Absent: tenderness, pedal edema, joint swelling, calf tenderness Back exam: Present: normal inspection Neurological exam: Present: alert, oriented X3, CN II-XII intact Psychiatric exam: Present: normal affect, normal mood Skin exam: Present: warm, dry, intact, normal color. Absent: rash Course Vital Signs 06/02/20 06/02/20 04:17 06:19 Temperature 98.7 F Pulse Rate 70 70 Respiratory 18 18 Rate Blood Pressure 120/75 116/84 O2 Sat by Pulse 98 100 Oximetry - Reevaluation(s) Reevaluation #1: 06/02/20 06:23 Medical record is reviewed 06/02/20 06:23 Transfer paperwork is requested and received from [facility] on 05/30 Ultrasound at that time did show epididymitis and orchitis of right testicle, no torsion Reevaluation #2: 06/02/20 06:23 Patient still having severe pain here in the ER low mildly improved Reevaluation #3: 06/02/20 06:24 Spoke with patient regarding findings, questions have been answered - Consultations Consultation #1: Spoke with Dr. Fajardo regarding patient, he is aware Medical Decision Making - Lab Data Result diagrams: 06/02/20 04:37 06/02/20 04:37 Lab Results 06/02/20 06/02/20 Range/Units 04:37 04:37 WBC 10.5 (3.8-10.6) k/uL RBC 4.25 L (4.30-5.90) m/uL Hgb 12.7 L (13.0-17.5) gm/dL Hct 38.8 L (39.0-53.0) % MCV 91.3 (80.0-100.0) fL MCH 29.9 (25.0-35.0) pg MCHC 32.7 (31.0-37.0) g/dL RDW 13.3 (11.5-15.5) % Plt Count 270 (150-450) k/uL MPV 6.3 Neutrophils % 69 % Lymphocytes % 20 % Monocytes % 7 % Eosinophils % 2 % Basophils % 0 % Neutrophils # 7.3 (1.3-7.7) k/uL Lymphocytes # 2.1 (1.0-4.8) k/uL Monocytes # 0.7 (0-1.0) k/uL Eosinophils # 0.2 (0-0.7) k/uL Basophils # 0.0 (0-0.2) k/uL Sodium 139 (137-145) mmol/L Potassium 3.9 (3.5-5.1) mmol/L Chloride 107 (98-107) mmol/L Carbon Dioxide 25 (22-30) mmol/L Anion Gap 7 mmol/L BUN 12 (9-20) mg/dL Creatinine 0.90 (0.66-1.25) mg/dL Est GFR (CKD-EPI)AfAm >90 (>60 ml/min/1.73 sqM) Est GFR (CKD-EPI)NonAf >90 (>60 ml/min/1.73 sqM) Glucose 106 H (74-99) mg/dL Calcium 8.9 (8.4-10.2) mg/dL Total Bilirubin 0.4 (0.2-1.3) mg/dL AST 23 (17-59) U/L ALT 9 (4-49) U/L Alkaline Phosphatase 48 (38-126) U/L C-Reactive Protein 28.0 H (<10.0) mg/L Total Protein 7.0 (6.3-8.2) g/dL Albumin 4.0 (3.5-5.0) g/dL - Radiology Data Radiology results: report reviewed (US scrotum positive for torsion), image reviewed Critical Care Time Critical Care Time: Yes Total Critical Care Time: 31 Disposition Clinical Impression: Right testicular torsion Disposition: ADMITTED IP TO THIS [facility] Condition: Serious Is patient prescribed a controlled substance at d/c from ED?: No Referrals: None,Stated [Primary Care Provider] - 1-2 days
[2020-06-02 04:55] LABS: Basophils % (A) 0 %; Eosinophils # (A) 0.2 k/uL (0-0.7); Eosinophils % (A) 2 %; HCT 38.8 % (39.0-53.0); HGB 12.7 gm/dL (13.0-17.5); Lymphocytes # (A) 2.1 k/uL (1.0-4.8); Lymphocytes % (A) 20 %; MCH 29.9 pg (25.0-35.0); MCHC 32.7 g/dL (31.0-37.0); MCV 91.3 fL (80.0-100.0); Mean Platelet Volume 6.3; Monocytes # (A) 0.7 k/uL (0-1.0); Monocytes % (A) 7 %; Neutrophils # (A) 7.3 k/uL (1.3-7.7); Neutrophils % (A) 69 %; Platelet Count 270 k/uL (150-450); RBC 4.25 m/uL (4.30-5.90); RDW 13.3 % (11.5-15.5); WBC 10.5 k/uL (3.8-10.6)
[2020-06-02 05:07] LABS: ALT 9 U/L (4-49); AST 23 U/L (17-59); African American GFR (CKD) >90 (>60 ml/min/1.73 sqM); Alkaline Phosphatase 48 U/L (38-126); Anion Gap 7 mmol/L; Blood Urea Nitrogen 12 mg/dL (9-20); Calcium 8.9 mg/dL (8.4-10.2); Carbon Dioxide 25 mmol/L (22-30); Chloride 107 mmol/L (98-107); Glucose 106 mg/dL (74-99); Non-African American GFR(CKD) >90 (>60 ml/min/1.73 sqM); Potassium 3.9 mmol/L (3.5-5.1); Sodium 139 mmol/L (137-145); Total Bilirubin 0.4 mg/dL (0.2-1.3)
[2020-06-02] MEDS ORDERED: AZITHROMYCIN 500 MG TAB PO STA (06:01)
[2020-06-02] MEDS ORDERED: MORPHINE SULFATE 4 MG/ML SYRINGE IVP STA (06:13)
[2020-06-02] MEDS ORDERED: HYDROmorphone 1 MG/ML 1 ML SYRINGE IVP STA (06:15)
[2020-06-02] MEDS ORDERED: HYDROmorphone 1 MG/ML 1 ML SYRINGE IVP PRN (06:15)
--- NOTE | 2020-06-02 06:35 | US ---
EXAM: US Scrotum CLINICAL HISTORY: ITS.REASON US Reason: pain TECHNIQUE: Real-time ultrasound of the scrotum with color Doppler and image documentation. COMPARISON: No relevant prior studies available. FINDINGS: The right testicle measures 4.8 x 3.5 x 2.8 cm. Severely heterogeneous echotexture, consistent with infarction as there is also no color-flow or Doppler signal within the right testicle. No color-flow or Doppler signal within the right epididymis. Mild right hydrocele. The left testicle measures 4.7 x 3.2 x 2.4 cm. Normal color flow and Doppler interrogation. Left epididymal cyst measuring up to 7 x 8 x 7 mm. Trace left hydrocele. IMPRESSION: Infarcted right testicle, as described. <MYCVCSECTION> Communications: 06/02/20 06:37 Call Doctor Regarding Other, called Dr. Nance on 06/02 06:37 (-05:00)
[2020-06-02 06:43] LABS: Appearance,Urine Clear (Clear); Bilirubin,Urine Negative (Negative); Blood,Urine Trace (Negative); Color,Urine Yellow; Glucose,Urine (UA) Negative (Negative); Ketones,Urine Negative (Negative); Leukocyte Esterase,Urine Negative (Negative); Mucus,Urine Rare /hpf; Nitrite,Urine Negative (Negative); Protein,Urine Negative (Negative); RBC,Urine 4 /hpf (0-5); Specific Gravity,Urine 1.013 (1.001-1.035); Urobilinogen,Urine <2.0 mg/dL (<2.0); WBC,Urine 1 /hpf (0-5)
[2020-06-02] MEDS ORDERED: IV FLUID CONTINUATION 1,000 ML IV ONE (07:20)
[2020-06-02] MEDS ORDERED: fentaNYL (PF) 50 MCG/ML 2 ML AMP ONE (07:33)
[2020-06-02] MEDS ORDERED: KETOROLAC 15 MG/ML 1 ML VIAL ONE (07:33)
[2020-06-02] MEDS ORDERED: MIDAZOLAM 2 MG/2 ML VIAL ONE (07:33)
[2020-06-02] MEDS ORDERED: LIDOCAINE 1% INJ 10MG/ML (20 ML MDV) ONE (07:33)
[2020-06-02] MEDS ORDERED: PROPOFOL 10 MG/ML 20 ML VIAL IV ONE (07:33)
[2020-06-02] MEDS ORDERED: ONDANSETRON 4 MG/2 ML VIAL ONE (07:33)
[2020-06-02] MEDS ORDERED: SUCCINYLCHOLINE CHLORIDE 100 MG/5 ML SYR IV ONE (07:33)
[2020-06-02 07:43] VITALS: RESP 16
--- NOTE | 2020-06-02 07:47 | P.GSHP ---
History of Present Illness H&P Date: 06/02/20 Chief Complaint: right Testicular pain 29-year-old male presents with a four-day history of right testicular pain and swelling. He initially was seen in [facility] Approximately 3 Days Ago. He Underwent a Scrotal Ultrasound at That Time That Showed No Eviden ce of Torsion. He Was Discharged Home with Antibiotics. He Indicated since Discharge His Pain Has Persistent, He Recently Ran Out Of Pain Medication and Presented to the ED. In the ER He Underwent a Scrotal Ultrasound That Demonstrated No Evidence of Flow, and Heterogeneous Appearing Testicle, co ncerning for testicular infarct. I Discussed with Him Given That in Symptoms Have Been Ongoing for 4 Days and the Appearance of Testicle on Ultrasound It Is concerning for Testicular Infarct. Discussed with Him I Recommend We Proceed with Scrotal Exploration. Possible Bilateral Orchiopexy. I Did Discussed with Him If the Testicle Feels Infarcted and unsalvageable on the Right Then We'll Need to Proceed with a Right Orchiectomy. Discussed with him the risk of bleeding, infection. Discussed also with him the recommendation to do a left orchiopexy to prevent future torsion on the contralateral testicle. He understood all the risk and agreed to proceed with scrotal expiration, possible bilateral orchiopexy, possible right orchiectomy - Constitutional Constitutional: Denies chills, Denies fever - Cardiovascular Cardiovascular: Denies chest pain, Denies shortness of breath - Respiratory Respiratory: Denies cough, Denies 7 - Gastrointestinal Gastrointestinal: Reports abdominal pain, Denies diarrhea, Denies nausea, Denies vomiting - Genitourinary (Female) Genitourinary: Reports dysuria, Denies difficulty voiding, Denies flank pain, Denies kidney stones - Genitourinary (Male) Genitourinary: Reports genital pain, Reports testicular pain - Musculoskeletal Musculoskeletal: Denies myalgias - Neurological Neurological: Denies numbness, Denies weakness - Psychiatric Psychiatric: Denies anxiety, Denies depression - Endocrine Endocrine: Denies fatigue, Denies weight change Past Medical History Past Medical History: Pneumonia History of Any Multi-Drug Resistant Organisms: None Reported Past Surgical History: No Surgical Hx Reported Past Psychological History: No Psychological Hx Reported Smoking Status: Current every day smoker Past Alcohol Use History: None Reported Past Drug Use History: Marijuana Medications and Allergies Home Medications Medication Instructions Recorded Confirmed Type Doxycycline Monohydrate [Monodox] 100 mg PO Q12HR 06/02/20 06/02/20 History HYDROcodone/APAP 5-325MG [[place] 1 tab PO DAILY PRN 06/02/20 06/02/20 History 5-325] Ibuprofen [Motrin] 600 mg PO BID PRN 06/02/20 06/02/20 History Allergies Allergy/AdvReac Type Severity Reaction Status Date / Time No Known Allergies Allergy Verified 06/02/20 06:45 Surgical - Exam Vital Signs Temp Pulse Resp BP Pulse Ox 98.7 F 70 18 120/75 98 06/02/20 04:17 06/02/20 04:17 06/02/20 04:17 06/02/20 04:17 06/02/20 04:17 - General well developed, well nourished, moderate distress, severe pain - Eyes PERRL, normal ocular movement - ENT normal nares, normal mucosa, no hearing loss - Neck trachea midline - Respiratory normal expansion, normal respiratory effort - Abdomen Abdomen: soft, non tender - Genitourinary Right testicle swollen, indurated tender, normal left testicle - Integumentary no rash, no growths - Psychiatric oriented to time, oriented to person, oriented to place, speech is normal Results - Labs 06/02/20 04:37 06/02/20 04:37 Abnormal Lab Results - Last 24 Hours (Table) 06/02/20 06/02/20 06/02/20 Range/Units 04:37 04:37 04:37 RBC 4.25 L (4.30-5.90) m/uL Hgb 12.7 L (13.0-17.5) gm/dL Hct 38.8 L (39.0-53.0) % Glucose 106 H (74-99) mg/dL C-Reactive Protein 28.0 H (<10.0) mg/L Urine Blood Trace H (Negative) Urine Mucus Rare H (None) /hpf Diabetes panel 06/02/20 Range/Units 04:37 Sodium 139 (137-145) mmol/L Potassium 3.9 (3.5-5.1) mmol/L Chloride 107 (98-107) mmol/L Carbon Dioxide 25 (22-30) mmol/L BUN 12 (9-20) mg/dL Creatinine 0.90 (0.66-1.25) mg/dL Glucose 106 H (74-99) mg/dL Calcium 8.9 (8.4-10.2) mg/dL AST 23 (17-59) U/L ALT 9 (4-49) U/L Alkaline Phosphatase 48 (38-126) U/L Total Protein 7.0 (6.3-8.2) g/dL Albumin 4.0 (3.5-5.0) g/dL Calcium panel 06/02/20 Range/Units 04:37 Calcium 8.9 (8.4-10.2) mg/dL Albumin 4.0 (3.5-5.0) g/dL Pituitary panel 06/02/20 Range/Units 04:37 Sodium 139 (137-145) mmol/L Potassium 3.9 (3.5-5.1) mmol/L Chloride 107 (98-107) mmol/L Carbon Dioxide 25 (22-30) mmol/L BUN 12 (9-20) mg/dL Creatinine 0.90 (0.66-1.25) mg/dL Glucose 106 H (74-99) mg/dL Calcium 8.9 (8.4-10.2) mg/dL Adrenal panel 06/02/20 Range/Units 04:37 Sodium 139 (137-145) mmol/L Potassium 3.9 (3.5-5.1) mmol/L Chloride 107 (98-107) mmol/L Carbon Dioxide 25 (22-30) mmol/L BUN 12 (9-20) mg/dL Creatinine 0.90 (0.66-1.25) mg/dL Glucose 106 H (74-99) mg/dL Calcium 8.9 (8.4-10.2) mg/dL Total Bilirubin 0.4 (0.2-1.3) mg/dL AST 23 (17-59) U/L ALT 9 (4-49) U/L Alkaline Phosphatase 48 (38-126) U/L Total Protein 7.0 (6.3-8.2) g/dL Albumin 4.0 (3.5-5.0) g/dL Assessment and Plan Assessment: 29 yo male with hx of right testicular torsion -OR for scrotal exploration, possible bilateral orchiopexy, possible right orchiectomy
[2020-06-02] MEDS ORDERED: SODIUM CHLORIDE 0.9% 50 ML with ceFAZolin 2,000 MG IV ONE ×2 (07:48)
[2020-06-02] MEDS ORDERED: BUPIVACAINE (PF) 0.5% 30 ML VIAL SQ ONE ×2 (07:54)
[2020-06-02 09:17] VITALS: TEMP 97
[2020-06-02] MEDS ORDERED: HYDROcodone/APAP 5-325MG 1 EACH TAB ONE (10:43)
[2020-06-02] MEDS ORDERED: HYDROcodone/APAP 5-325MG 1 EACH TAB PO ONE (10:44)
[2020-06-02 10:49] VITALS: BP 132/80
[2020-06-02 11:13] VITALS: PULSE 65
--- NOTE | 2020-06-02 20:52 | P.OP ---
Date of Procedure: 06/02/20 Preoperative Diagnosis: right testicular torsion Postoperative Diagnosis: same Procedure(s) Performed: Scrotal exploration, right orchiectomy and left orchiopexy Implants: none Anesthesia: JONNA Surgeon: Gustavo Fajardo Estimated Blood Loss (ml): 20 Pathology: other (right testicle) Condition: stable Disposition: PACU Indications for Procedure: 29-year-old male presents with a four-day history of right testicular pain and swelling. He initially was seen in [facility] Approximately 3 Days Ago. He Underwent a Scrotal Ultrasound at That Time That Showed No Evidence of Torsion. He Was Discharged Home with Antibiotics. He Indicated since Discharge His Pain Has Persistent, He Recently Ran Out Of Pain Medication and Presented to the ED. In the ER He Underwent a Scrotal Ultrasound That Demonstrated No Evidence of Flow, and Heterogeneous Appearing Testicle, concerning for testicular infarct. I Discussed with Him Given That Symptoms Have Been Ongoing for 4 Days and the Appearance of Testicle on Ultrasound It Is concerning for Testicular Infarct. Discussed with Him I Recommend We Proceed with Scrotal Exploration. Possible Bilateral Orchiopexy. I Did Discussed with Him If the Testicle is Infarcted and unsalvageable on the Right Then We'll Need to Proceed with a Right Orchiectomy. Discussed with him the risk of bleeding, infection. Discussed also with him the recommendation to do a left orchiopexy to prevent future torsion on the contralateral testicle. He understood all the risk and agreed to proceed with scrotal expiration, possible bilateral orchiopexy, possible right orchiectomy Operative Findings: right testicle, black consistent with infarcted testicle, Description of Procedure: After informed consent was obtained, the patient was brought to the operating room and placed in the supine position. antibiotic was given, anesthesia was induced and the patient's scrotum and penis was prepped and draped in the usual sterile manner. A critical time-out was performed using 2 patient identifiers. , a 3cm incision was made along the right hemiscrotum. This was taken down through dartos with electrocautery. The right testicle was brought towards the incision and the testicle was exposed with dissection through the tunica vaginalis. The testicle was brought out of the scrotal incision and inspected. The testicle was black and very tense. The cord was twisted 360 degrees. The testicle was untwisted and towel soaked with warm saline was placed around the testicle. Attention was turned to the left testicle. an incision was made along the left hemiscrotum and dartos was incised using electrocautery. The testicle was delivered into the field and was noted to be pink and viable. Hemostasis was obtained with electrocautery. The testis appendix was identified and removed. The testicle was replaced in the scrotum in normal anatomical position and 3-0 PDS sutures were placed to secure the testicle at the 3, 6, and 9 oclock positions to the scrotal sac. The dartos was closed with a running 3-0 vicryl suture. and skin was closed with 4-0 chromic. Attention was carried back to the right testicle, the testicle still appeared ischemic and black, and incision was made in the tunica albuginea and no bleeding was appreciated, and necrotic seminiferous tubules were visualized. At this time decision was made to proceed with orchiectomy. the cord was dissected into two pockets, two 2-0 silks were placed around each of the pocket on the proximal end and one 2-0 silk was seen on each of the distal end. The cord was ligated and testicle was send to pathology. The dartos was closed with a running 3-0 vicryl suture. and skin was closed with 4-0 chromic. skin glue was applied to the skin, 0.5% marcaine was infiltrated around the incision. Patient was awakened from anesthesia and taken to recovery in stable condition .
[2020-06-03 14:51] LABS: C. trachomatis,PCR Negative (Neg,Equiv); Chlamydia trachomatis Source Urine; N. gonorrhoeae,PCR Negative (Neg,Equiv); Neisseria Source Urine
--- NOTE | 2020-06-04 18:26 | P.DS ---
Providers Date of admission: 06/02/20 06:27 Attending physician: Gustavo Fajardo MD Primary care physician: Stated None Hospital Course: This is a 39-year-old male that presented to the ED with right testicular torsion. He was taken to the OR, on June 02. He underwent a right orchiectomy and a left orchiopexy. Please see op note dated June 02 for surgery details. He was discharged home post operatively. At time of discharge he was tolerating a diet and his pain was controlled. Patient Condition at Discharge: Stable Plan - Discharge Summary New Discharge Prescriptions: New HYDROcodone/APAP 5-325MG [[place] 5-325] 1 tab PO Q6HR PRN 3 Days #12 tab PRN Reason: Pain Ketorolac [Toradol] 10 mg PO Q6HR #15 tab No Action Ibuprofen [Motrin] 600 mg PO BID PRN PRN Reason: Pain Doxycycline Monohydrate [Monodox] 100 mg PO Q12HR Ondansetron [Zofran ODT] 4 mg PO Q8HR PRN #10 tab PRN Reason: Nausea Discharge Medication List Doxycycline Monohydrate [Monodox] 100 mg PO Q12HR 06/02/20 [History] HYDROcodone/APAP 5-325MG [[place] 5-325] 1 tab PO Q6HR PRN 3 Days #12 tab 06/02/20 [Rx] Ibuprofen [Motrin] 600 mg PO BID PRN 06/02/20 [History] Ketorolac [Toradol] 10 mg PO Q6HR #15 tab 06/02/20 [Rx] Ondansetron [Zofran ODT] 4 mg PO Q8HR PRN #10 tab 06/02/20 [Rx] Follow up Appointment(s)/Referral(s): Gustavo Fajardo MD [STAFF PHYSICIAN] - 2 Weeks (FOLLOW UP WITH DR FAJARDO IN 2 WEEKS-June AT 11:20) Anastacio Puentes MD [REFERRING] - 1 Week None,Stated [Primary Care Provider] - 1-2 days Patient Instructions/Handouts: *Surgery [facility] - (Anesthesia) Discharge Instructions Outpatient Surgery, Testicular Torsion (DC), Orchiectomy (DC) Activity/Diet/Wound Care/Special Instructions: No heavy lifting or straining for 4 weeks You may shower in 48 hours but no baths for 4 weeks Apply Ice to the scrotum as needed Discharge Disposition: HOME SELF-CARE
== END 2020-06-02 12:10 | disposition home or self-care (01) ==
LOC: EC 04:14 → 6NMEDSUR 06:27
PROVIDERS: ADMIT Urology; ATTEND Urology
DX: N44.00 Torsion of testis, unspecified (principal); F17.200 Nicotine dependence, unspecified, uncomplicated; R30.0 Dysuria; Z20.822 Contact with and (suspected) exposure to COVID-19
CPT/HCPCS: 54620; 54522; 96361; 96374; 96375; 99291; 36415; 88305; 80053; 85025; 86140; 81001; 87040; 87491; 87591; 87635; 93975; 76870; G0378; J2250; J2270; J2405; J0690; J2001; J0696; J3010; J1170; J1885; J0330; J2704; 88302

== ENCOUNTER 2020-06-02 19:57 | Emergency (ER) | payer OTHER ==
[2020-06-02] MEDS ORDERED: SODIUM CHLORIDE 0.9% 1,000 ML IV STA (20:08)
[2020-06-02] MEDS ORDERED: KETOROLAC 15 MG/ML 1 ML VIAL IVP STA (20:09)
[2020-06-02] MEDS ORDERED: ONDANSETRON 4 MG/2 ML VIAL IVP STA (20:09)
[2020-06-02] MEDS ORDERED: HYDROmorphone 0.5 MG/0.5 ML SYRINGE IVP STA (20:09)
--- NOTE | 2020-06-02 20:15 | ED ---
Recheck HPI - General Chief Complaint: Recheck/Abnormal Lab/Rx Stated Complaint: Not feeling good post op Time Seen by Provider: 06/02/20 20:03 Source: patient Mode of arrival: ambulatory Limitations: no limitations - History of Present Illness Initial Comments: 29 year-old male patient who was in early this morning and underwent surgery for testicular torsion presents back the emergency department this evening for evaluation of increased testicular pain, chills, and fever. Patient states that he last took pain medication around 1600, but it made him nauseous so he did not take anymore. State he had a temperature at home of 100.0. Denies taking any thing for his symptoms. Patient states he does not feel well. He denies any drainage from his incision. Denies any increased swelling to the testicles. Denies cough or congestion. States he has been on antibiotics recently for possible orchitis. States he is urinating without difficulty. Patient denies any recent rash, cough, shortness of breath, chest pain, abdominal pain, vomiting, diarrhea, constipation, back pain, numbness, tingling, dizziness, weakness, hematuria, dysuria, urinary urgency, urinary frequency, headache, visual changes, or any other complaints. - Related Data Home Medications Medication Instructions Recorded Confirmed Doxycycline Monohydrate [Monodox] 100 mg PO Q12HR 06/02/20 06/02/20 Ibuprofen [Motrin] 600 mg PO BID PRN 06/02/20 06/02/20 Previous Rx's Medication Instructions Recorded HYDROcodone/APAP 5-325MG [[place] 1 tab PO Q6HR PRN 3 Days #12 tab 06/02/20 5-325] Ketorolac [Toradol] 10 mg PO Q6HR #15 tab 06/02/20 Ondansetron [Zofran ODT] 4 mg PO Q8HR PRN #10 tab 06/02/20 Allergies Allergy/AdvReac Type Severity Reaction Status Date / Time No Known Allergies Allergy Verified 06/02/20 20:42 Review of Systems ROS Statement: Those systems with pertinent positive or pertinent negative responses have been documented in the HPI. ROS Other: All systems not noted in ROS Statement are negative. Past Medical History Past Medical History: Pneumonia History of Any Multi-Drug Resistant Organisms: None Reported Past Surgical History: No Surgical Hx Reported Additional Past Surgical History / Comment(s): testicular torsion surgery 05/2020 Past Psychological History: No Psychological Hx Reported Smoking Status: Current every day smoker Past Alcohol Use History: None Reported Past Drug Use History: Marijuana General Exam Limitations: no limitations General appearance: alert, in no apparent distress, other (this is a well- developed, well-nourished adult male patient in mild distress related to pain) ENT exam: Present: normal exam, normal oropharynx, mucous membranes moist Respiratory exam: Present: normal lung sounds bilaterally Cardiovascular Exam: Present: regular rate, normal rhythm, normal heart sounds. Absent: systolic murmur, diastolic murmur, rubs, gallop, clicks GI/Abdominal exam: Present: soft, normal bowel sounds. Absent: distended, tenderness, guarding, rebound, rigid exam: Present: other (Left scrotal incision is well approximated, no drainage. Mild generalized swelling to the scrotum. ) Neurological exam: Present: alert, oriented X3, CN II-XII intact Psychiatric exam: Present: normal affect, normal mood Skin exam: Present: warm, dry, intact, normal color. Absent: rash Course Vital Signs 06/02/20 06/02/20 19:59 21:53 Temperature 98.9 F Pulse Rate 75 78 Respiratory 18 16 Rate Blood Pressure 134/74 121/71 O2 Sat by Pulse 99 97 Oximetry Medical Decision Making - Medical Decision Making 29 year-old male patient presented to the emergency department for evaluation of post-operative pain and nausea. Patient states his home medication made him sick so he was unable to continue taking it. He also reported temperature of 100.0. is equal examination reveals soft nontender abdomen. There is generally scrotal swelling, no drainage incisions are well approximated. He is afebrile here. Labs reviewed did reveal elevated white cell count 14.5. This is felt reactive due to recent surgery. He is given IV fluids and pain medications here. Upon reevaluation is resting comfortably in bed. States that symptoms aren't improved. He'll be discharged with prescription for Zofran to take with his pain medications to manage his pain. Instructed to follow-up with Dr. Mcnally for further evaluation. Return parameters were discussed in detail. He verbalizes understanding and agrees with this plan. Case discussed with Dr. Winters. - Lab Data Result diagrams: 06/02/20 20:21 06/02/20 21:10 Lab Results 06/02/20 06/02/2006/02/21 Range/Units 20:21 20:21 21:10 WBC 14.6 H (3.8-10.6) k/uL RBC 4.14 L (4.30-5.90) m/uL Hgb 12.5 L (13.0-17.5) gm/dL Hct 38.1 L (39.0-53.0) % MCV 92.0 (80.0-100.0) fL MCH 30.2 (25.0-35.0) pg MCHC 32.8 (31.0-37.0) g/dL RDW 12.8 (11.5-15.5) % Plt Count 266 (150-450) k/uL MPV 6.9 Neutrophils % 82 % Lymphocytes % 9 % Monocytes % 6 % Eosinophils % 2 % Basophils % 0 % Neutrophils # 12.0 H (1.3-7.7) k/uL Lymphocytes # 1.3 (1.0-4.8) k/uL Monocytes # 0.9 (0-1.0) k/uL Eosinophils # 0.3 (0-0.7) k/uL Basophils # 0.0 (0-0.2) k/uL Sodium 135 L (137-145) mmol/L Potassium 3.8 (3.5-5.1) mmol/L Chloride 104 (98-107) mmol/L Carbon Dioxide 25 (22-30) mmol/L Anion Gap 6 mmol/L BUN 7 L (9-20) mg/dL Creatinine 0.84 (0.66-1.25) mg/dL Est GFR (CKD-EPI)AfAm >90 (>60 ml/min/1.73 sqM) Est GFR (CKD-EPI)NonAf >90 (>60 ml/min/1.73 sqM) Glucose 113 H (74-99) mg/dL Plasma Lactic Acid Herb (0.7-2.0) mmol/L Calcium 9.0 (8.4-10.2) mg/dL Total Bilirubin 0.7 (0.2-1.3) mg/dL AST 27 (17-59) U/L ALT 9 (4-49) U/L Alkaline Phosphatase 49 (38-126) U/L Total Protein 6.9 (6.3-8.2) g/dL Albumin 3.9 (3.5-5.0) g/dL Urine Color Yellow Urine Appearance Clear (Clear) Urine pH 6.5 (5.0-8.0) Ur Specific [place] 1.017 (1.001-1.035) Urine Protein Negative (Negative) Urine Glucose (UA) Negative (Negative) Urine Ketones 1+ H (Negative) Urine Blood Trace H (Negative) Urine Nitrite Negative (Negative) Urine Bilirubin Negative (Negative) Urine Urobilinogen <2.0 (<2.0) mg/dL Ur Leukocyte Esterase Negative (Negative) Urine RBC 5 (0-5) /hpf Urine WBC 1 (0-5) /hpf Ur Squamous Epith Cells <1 (0-4) /hpf Urine Mucus Rare H (None) /hpf 06/02/20 Range/Units 21:10 WBC (3.8-10.6) k/uL RBC (4.30-5.90) m/uL Hgb (13.0-17.5) gm/dL Hct (39.0-53.0) % MCV (80.0-100.0) fL MCH (25.0-35.0) pg MCHC (31.0-37.0) g/dL RDW (11.5-15.5) % Plt Count (150-450) k/uL MPV Neutrophils % % Lymphocytes % % Monocytes % % Eosinophils % % Basophils % % Neutrophils # (1.3-7.7) k/uL Lymphocytes # (1.0-4.8) k/uL Monocytes # (0-1.0) k/uL Eosinophils # (0-0.7) k/uL Basophils # (0-0.2) k/uL Sodium (137-145) mmol/L Potassium (3.5-5.1) mmol/L Chloride (98-107) mmol/L Carbon Dioxide (22-30) mmol/L Anion Gap mmol/L BUN (9-20) mg/dL Creatinine (0.66-1.25) mg/dL Est GFR (CKD-EPI)AfAm (>60 ml/min/1.73 sqM) Est GFR (CKD-EPI)NonAf (>60 ml/min/1.73 sqM) Glucose (74-99) mg/dL Plasma Lactic Acid Herb 0.9 (0.7-2.0) mmol/L Calcium (8.4-10.2) mg/dL Total Bilirubin (0.2-1.3) mg/dL AST (17-59) U/L ALT (4-49) U/L Alkaline Phosphatase (38-126) U/L Total Protein (6.3-8.2) g/dL Albumin (3.5-5.0) g/dL Urine Color Urine Appearance (Clear) Urine pH (5.0-8.0) Ur Specific [place] (1.001-1.035) Urine Protein (Negative) Urine Glucose (UA) (Negative) Urine Ketones (Negative) Urine Blood (Negative) Urine Nitrite (Negative) Urine Bilirubin (Negative) Urine Urobilinogen (<2.0) mg/dL Ur Leukocyte Esterase (Negative) Urine RBC (0-5) /hpf Urine WBC (0-5) /hpf Ur Squamous Epith Cells (0-4) /hpf Urine Mucus (None) /hpf Disposition Clinical Impression: Post-op pain, Postoperative nausea Disposition: HOME SELF-CARE Condition: Good Instructions (If sedation given, give patient instructions): Testicle Pain (ED) Additional Instructions: follow-up with your surgeon for further evaluation as soon as possible. Perform coughing and deep breathing exercises to keep her lungs expanded. Take home pain medications as directed. Use nausea medicine prior to taking the pain medication to prevent nausea. Take pain medication on a full stomach. Return for any new, worsening, or concerning symptoms Prescriptions: Ondansetron [Zofran ODT] 4 mg PO Q8HR PRN #10 tab PRN Reason: Nausea Is patient prescribed a controlled substance at d/c from ED?: No Referrals: Gustavo Fajardo MD [STAFF PHYSICIAN] - 1-2 days Time of Disposition: 22:22
[2020-06-02 20:52] LABS: Basophils % (A) 0 %; Eosinophils # (A) 0.3 k/uL (0-0.7); Eosinophils % (A) 2 %; HCT 38.1 % (39.0-53.0); HGB 12.5 gm/dL (13.0-17.5); Lymphocytes # (A) 1.3 k/uL (1.0-4.8); Lymphocytes % (A) 9 %; MCH 30.2 pg (25.0-35.0); MCHC 32.8 g/dL (31.0-37.0); Mean Platelet Volume 6.9; Monocytes # (A) 0.9 k/uL (0-1.0); Monocytes % (A) 6 %; Neutrophils % (A) 82 %; Platelet Count 266 k/uL (150-450); RBC 4.14 m/uL (4.30-5.90); RDW 12.8 % (11.5-15.5); WBC 14.6 k/uL (3.8-10.6)
[2020-06-02 21:35] LABS: ALT 9 U/L (4-49); AST 27 U/L (17-59); African American GFR (CKD) >90 (>60 ml/min/1.73 sqM); Albumin 3.9 g/dL (3.5-5.0); Alkaline Phosphatase 49 U/L (38-126); Anion Gap 6 mmol/L; Blood Urea Nitrogen 7 mg/dL (9-20); Carbon Dioxide 25 mmol/L (22-30); Chloride 104 mmol/L (98-107); Glucose 113 mg/dL (74-99); Non-African American GFR(CKD) >90 (>60 ml/min/1.73 sqM); Potassium 3.8 mmol/L (3.5-5.1); Sodium 135 mmol/L (137-145); Total Bilirubin 0.7 mg/dL (0.2-1.3); Total Protein 6.9 g/dL (6.3-8.2)
[2020-06-02] MEDS ORDERED: HYDROmorphone 1 MG/ML 1 ML SYRINGE IVP STA (21:52)
[2020-06-02 21:55] VITALS: RESP 16
[2020-06-02 22:13] LABS: Appearance,Urine Clear (Clear); Bilirubin,Urine Negative (Negative); Blood,Urine Trace (Negative); Color,Urine Yellow; Glucose,Urine (UA) Negative (Negative); Ketones,Urine 1+ (Negative); Leukocyte Esterase,Urine Negative (Negative); Mucus,Urine Rare /hpf; Nitrite,Urine Negative (Negative); PH, Urine 6.5 (5.0-8.0); Protein,Urine Negative (Negative); RBC,Urine 5 /hpf (0-5); Specific Gravity,Urine 1.017 (1.001-1.035); Squamous Epithelial Cell,Urine <1 /hpf (0-4); Urobilinogen,Urine <2.0 mg/dL (<2.0); WBC,Urine 1 /hpf (0-5)
[2020-06-02] MEDS ORDERED: ONDANSETRON 4 MG ODT STARTER PACK 2 TAB BTL PO STA (22:22)
[2020-06-02 22:53] VITALS: BP 93/66; PULSE 82; TEMP 98.7
== END 2020-06-02 22:42 | disposition home or self-care (01) ==
LOC: EC 19:57
DX: G89.18 Other acute postprocedural pain (principal); R11.0 Nausea; F17.200 Nicotine dependence, unspecified, uncomplicated
CPT/HCPCS: 36415; 80053; 83605; 85025; 81001; 87040; 99284; 96374; 96375 ×2; 96376; 96361; J2405; J1170 ×2; J1885; S0119

== ENCOUNTER → 2020-06-03 | Outpatient (CLI) | payer OTHER ==
--- NOTE | 2020-06-03 11:48 | US ---
EXAMINATION TYPE: US scrotum with doppler. DATE OF EXAM: 06/03/2020 COMPARISON: Ultrasound 06/02/2020 CLINICAL HISTORY: 29-year-old male N50.8 Pain Scrotum/Testes. Severe scrotal pain post right orchidec chikis yesterday for testicular torsion; fever and chills TECHNIQUE: Grayscale and color Doppler Duplex imaging performed of the scrotum. FINDINGS: EXAM MEASUREMENTS: TESTICLES: Right Testicle: surgically removed Left Testicle: 3.9 x 3.0 x 2.9 cm EPIDIDYMIS HEAD: Left Epididymis: 0.6 x 0.7 x 1.0 cm. Epididymal cysts measure up to 8 mm as seen previously. Color flow and PW Doppler performed to assess for testicular vascularity; good color flow and PW Dopp ler waveforms are seen. There is no evidence of left testicular torsion. Presence of complex hydrocele vs. seroma possibly with some hemorrhagic debris in right scrotal sac = 4.5 x 3.5 x 1.8cm post rt. orchidectomy. Mildly complex hydrocele is noted superior to left testicle = 2.0 x 3.0 x 0.9cm. IMPRESSION: 1. Status post right orchiectomy. Nonspecific fluid collection measuring 4.5 cm with debris is presen t in the right scrotal sac, possible seroma with hemorrhagic material. 2. A new small, mildly complex hydrocele superiorly on the left measuring 3.0 cm. 3. No evidence for testicular torsion on the left.
== END | disposition home or self-care (01) ==
LOC: RADUSWWP 10:36
PROVIDERS: ATTEND Urology
DX: N43.3 Hydrocele, unspecified (principal); N50.89 Other specified disorders of the male genital organs; Z90.79 Acquired absence of other genital organ(s)
CPT/HCPCS: 76870; 93975

== ENCOUNTER 2021-05-10 11:08 | Emergency (ER) | payer OTHER ==
[2021-05-10 12:48] VITALS: BP 111/73; PULSE 81; RESP 20; TEMP 100.8
[2021-05-10] MEDS ORDERED: ACETAMINOPHEN TAB 500 MG TAB PO STA (15:01)
[2021-05-10] MEDS ORDERED: AMOXICILLIN 875 MG TAB PO STA (15:01)
[2021-05-10] MEDS ORDERED: IBUPROFEN 600 MG TAB PO STA (15:01)
--- NOTE | 2021-05-10 15:08 | ED ---
General Adult HPI - General Chief complaint: Upper Respiratory Infection Stated complaint: Sore throat/back pain Time Seen by Provider: 05/10/21 13:46 Source: patient Mode of arrival: ambulatory Limitations: no limitations - History of Present Illness Initial comments: 30-year-old male without any significant past medical history presents to the emergency room for sore throat. Patient states he woke up with a sore throat today. States it is worse on the right side. Patient denies any difficulty swallowing or neck stiffness. He does have a low-grade fever. He has not taken Motrin or Tylenol. Patient would also like to be tested for COVID-19.Patient has no other complaints at this time including shortness of breath, chest pain, abdominal pain, nausea or vomiting, headache, or visual changes. - Related Data Home Medications Medication Instructions Recorded Confirmed Doxycycline Monohydrate [Monodox] 100 mg PO Q12HR 06/02/20 06/02/20 Ibuprofen [Motrin] 600 mg PO BID PRN 06/02/20 06/02/20 Previous Rx's Medication Instructions Recorded HYDROcodone/APAP 5-325MG [[place] 1 tab PO Q6HR PRN 3 Days #12 tab 06/02/20 5-325] Ketorolac [Toradol] 10 mg PO Q6HR #15 tab 06/02/20 Ondansetron [Zofran ODT] 4 mg PO Q8HR PRN #10 tab 06/02/20 Amoxicillin 875 mg PO Q12HR #20 tablet 05/10/21 Allergies Allergy/AdvReac Type Severity Reaction Status Date / Time No Known Allergies Allergy Verified 05/10/21 12:46 Review of Systems ROS Statement: Those systems with pertinent positive or pertinent negative responses have been documented in the HPI. ROS Other: All systems not noted in ROS Statement are negative. Past Medical History Past Medical History: Pneumonia History of Any Multi-Drug Resistant Organisms: None Reported Past Surgical History: No Surgical Hx Reported Additional Past Surgical History / Comment(s): testicular torsion surgery 05/2020 Past Psychological History: Anxiety Smoking Status: Current every day smoker Past Alcohol Use History: None Reported Past Drug Use History: Marijuana General Exam Limitations: no limitations General appearance: alert, in no apparent distress Head exam: Present: atraumatic Eye exam: Present: normal appearance, PERRL, EOMI. Absent: scleral icterus, conjunctival injection ENT exam: Present: normal exam, normal oropharynx (Uvula midline, no tonsillar exudates bilaterally.), mucous membranes moist, TM's normal bilaterally, normal external ear exam Neck exam: Present: normal inspection, full ROM. Absent: tenderness Respiratory exam: Present: normal lung sounds bilaterally. Absent: respiratory distress, wheezes Cardiovascular Exam: Present: regular rate, normal rhythm, normal heart sounds GI/Abdominal exam: Present: soft, normal bowel sounds. Absent: distended, tenderness Neurological exam: Present: alert Course Vital Signs 05/10/21 12:46 Temperature 100.8 F H Pulse Rate 81 Respiratory 20 Rate Blood Pressure 111/73 O2 Sat by Pulse 100 Oximetry Medical Decision Making - Medical Decision Making Vitals are stable. Patient has a temperature 100.8. Given Motrin and Tylenol. COVID-19 negative. I did order a strep swab and culture however patient will be treated empirically given mild exudates noted bilaterally. No fullness of the tonsillar pillars. No evidence for. Tonsillar abscess. At this time patient can be discharged home to follow up with primary care. Will return here for any worsening symptoms. - Lab Data Lab Results 05/10/21 Range/Units 12:48 Coronavirus (PCR) Not Detected (Not Detectd) Disposition Clinical Impression: Pharyngitis Disposition: HOME SELF-CARE Condition: Good Instructions (If sedation given, give patient instructions): Pharyngitis (ED) Additional Instructions: Please follow up with your doctor in 1-2 days. Return to the ER for any worsening symptoms. Prescriptions: Amoxicillin 875 mg PO Q12HR #20 tablet Is patient prescribed a controlled substance at d/c from ED?: No Time of Disposition: 15:04
== END 2021-05-10 15:31 | disposition home or self-care (01) ==
LOC: EC 11:08
DX: J02.9 Acute pharyngitis, unspecified (principal); F17.200 Nicotine dependence, unspecified, uncomplicated; F12.90 Cannabis use, unspecified, uncomplicated; Z79.1 Long term (current) use of non-steroidal anti-inflammatories (NSAID); Z79.899 Other long term (current) drug therapy
CPT/HCPCS: 87430; 87635; 99283

== ENCOUNTER 2023-12-16 18:09 | Emergency (ER) | payer OTHER ==
[2023-12-16 18:12] VITALS: TEMP 97.9
[2023-12-16] MEDS: KETOROLAC 15 MG/ML 1 ML VIAL IVP STA ×2 (18:58→21:03)
[2023-12-16 19:11] LABS: Appearance,Urine Clear (Clear); Bilirubin,Urine Negative (Negative); Blood,Urine Negative (Negative); Color,Urine Yellow; Glucose,Urine (UA) Negative (Negative); Ketones,Urine Negative (Negative); Leukocyte Esterase,Urine Negative (Negative); Nitrite,Urine Negative (Negative); PH, Urine 6.5 (5.0-8.0); Protein,Urine Negative (Negative); Specific Gravity,Urine 1.022 (1.001-1.035); Urobilinogen,Urine <2.0 mg/dL (<2.0)
[2023-12-16 19:20] LABS: Basophils % (A) 0 %; Eosinophils # (A) 0.1 k/uL (0-0.7); Eosinophils % (A) 1 %; HCT 37.5 % (39.0-53.0); HGB 12.8 gm/dL (13.0-17.5); Lymphocytes # (A) 2.5 k/uL (1.0-4.8); Lymphocytes % (A) 26 %; MCH 30.7 pg (25.0-35.0); MCHC 34.2 g/dL (31.0-37.0); MCV 89.8 fL (80.0-100.0); Mean Platelet Volume 6.5; Monocytes # (A) 0.7 k/uL (0-1.0); Monocytes % (A) 7 %; Neutrophils # (A) 6.3 k/uL (1.3-7.7); Neutrophils % (A) 65 %; Platelet Count 361 k/uL (150-450); RBC 4.18 m/uL (4.30-5.90); RDW 12.9 % (11.5-15.5); WBC 9.7 k/uL (3.8-10.6)
[2023-12-16 19:29] LABS: ALT 11 U/L (4-49); AST 23 U/L (17-59); African American GFR (CKD) >90 (>60 ml/min/1.73 sqM); Albumin 3.7 g/dL (3.5-5.0); Alkaline Phosphatase 54 U/L (38-126); Anion Gap 5 mmol/L; Blood Urea Nitrogen 11 mg/dL (9-20); Calcium 8.9 mg/dL (8.4-10.2); Carbon Dioxide 27 mmol/L (22-30); Chloride 106 mmol/L (98-107); Glucose 88 mg/dL (74-99); Non-African American GFR(CKD) 89 (>60 ml/min/1.73 sqM); Sodium 138 mmol/L (137-145); Total Bilirubin 0.3 mg/dL (0.2-1.3); Total Protein 6.3 g/dL (6.3-8.2)
--- NOTE | 2023-12-16 19:59 | US ---
EXAMINATION TYPE: US scrotum with doppler. Grayscale and color Doppler Duplex imaging performed of vicente alvarez scrotum. DATE OF EXAM: 12/16/2023 COMPARISON: 06/03/2020 CLINICAL INDICATION: Male, 33 years old with history of pain; Rt testicle removed 2020 for torsion. L eft side pain. EXAM MEASUREMENTS: TESTICLES: Right Testicle: Surgically removed. Left Testicle: 4.4 x 2.0 x 4.2 cm EPIDIDYMIS HEAD: Right Epididymis: Surgically removed. Left Epididymis: 1.1 x .8 x .8 cm Doppler performed to assess for testicular vascularity; good left color flow and waveforms are seen. There is no evidence of testicular torsion. To be increased color Doppler flow and would be normal. Presence of hydroceles: no Presence of varicoceles: Left IMPRESSION: Increased color Doppler flow within the left testis correlate for epididymoorchitis
--- NOTE | 2023-12-16 20:33 | ED ---
Male Urogenital HPI - General Chief complaint: Urogenital Stated complaint: Urogential Time Seen by Provider: 12/16/23 18:16 Source: patient Mode of arrival: ambulatory Limitations: no limitations - History of Present Illness Initial comments: 33-year-old male present with chief complaint of the left testicular pain. Pain started yesterday. States that the pain travels up into his abdomen. Change of position in general moving tend to aggravate the pain. He does not know if there is any redness or swelling. No fever, chills, nausea, vomiting. No p enile discharge. Denies anal intercourse. No injury or trauma. 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 - Related Data Home Medications Medication Instructions Recorded Confirmed Doxycycline Monohydrate [Monodox] 100 mg PO Q12HR 06/02/20 06/02/20 Ibuprofen [Motrin] 600 mg PO BID PRN 06/02/20 06/02/20 Previous Rx's Medication Instructions Recorded HYDROcodone/APAP 5-325MG [[place] 1 tab PO Q6HR PRN 3 Days #12 tab 06/02/20 5-325] Ketorolac [Toradol] 10 mg PO Q6HR #15 tab 06/02/20 Ondansetron [Zofran ODT] 4 mg PO Q8HR PRN #10 tab 06/02/20 Amoxicillin 875 mg PO Q12HR #20 tablet 05/10/21 Doxycycline [Vibramycin] 100 mg PO BID 10 Days #20 capsule 12/16/23 Allergies Allergy/AdvReac Type Severity Reaction Status Date / Time No Known Allergies Allergy Verified 12/16/23 18:12 Review of Systems ROS Statement: Those systems with pertinent positive or pertinent negative responses have been documented in the HPI. ROS Other: All systems not noted in ROS Statement are negative. Past Medical History Past Medical History: Pneumonia History of Any Multi-Drug Resistant Organisms: None Reported Past Surgical History: No Surgical Hx Reported Additional Past Surgical History / Comment(s): testicular torsion surgery 05/2020 Past Psychological History: Anxiety Smoking Status: Current every day smoker, Vaper Past Alcohol Use History: None Reported Past Drug Use History: Marijuana General Exam Limitations: no limitations General appearance: alert, in no apparent distress Head exam: Present: atraumatic, normocephalic Eye exam: Present: normal appearance, EOMI Neck exam: Present: normal inspection. Absent: meningismus Respiratory exam: Absent: respiratory distress Cardiovascular Exam: Present: regular rate GI/Abdominal exam: Present: soft. Absent: distended, tenderness, guarding, rebound, rigid exam: Present: testicular tenderness. Absent: urethral discharge, scrotal swelling External exam: Present: normal external exam Neurological exam: Present: alert, oriented X3 Psychiatric exam: Present: normal affect, normal mood Skin exam: Present: warm, dry Course Vital Signs 12/16/23 12/16/23 18:10 21:10 Temperature 97.9 F Pulse Rate 73 72 Respiratory 17 16 Rate Blood Pressure 126/86 124/84 O2 Sat by Pulse 99 98 Oximetry Medical Decision Making - Medical Decision Making Was pt. sent in by a medical professional or institution (NAHID Negrete, WASTEWATER ANALYST LAB ANALYST, urgent care, hospital, or half-way...) When possible be specific @ -No Did you speak to anyone other than the patient for history (EMS, parent, family, police, friend...)? What history was obtained from this source @ -No Did you review nursing and triage notes (agree or disagree)? Why? @ -I reviewed and agree with nursing and triage notes Were old charts reviewed (outside hosp., previous admission, EMS record, old EKG, old radiological studies, urgent care reports/EKG's, half-way records)? Report findings @ -No old charts were reviewed Differential Diagnosis (chest pain, altered mental status, abdominal pain women, abdominal pain men, vaginal bleeding, weakness, fever, dyspnea, syncope, headache, dizziness, GI bleed, back pain, seizure, CVA, palpatations, mental health, musculoskeletal)? @ -Differential includes testicular torsion, epididymitis, orchitis, hydrocele, varicocele, this is not an all-inclusive list EKG interpreted by me (3pts min.). @ -As above X-rays interpreted by me (1pt min.). @ -None done CT interpreted by me (1pt min.). @ -None done U/S interpreted by me (1pt. min.). @ -Ultrasound shows increased color Doppler flow within the left testes correlate for epididymoorchitis What testing was considered but not performed or refused? (CT, X-rays, U/S, labs)? Why? @ -None What meds were considered but not given or refused? Why? @ -None Did you discuss the management of the patient with other professionals (professionals i.e. DrMelissa, PA, WASTEWATER ANALYST LAB ANALYST, lab, RT, psych nurse, bilingual social worker, carbon coater machine operator, teacher, motorcycle police officer, case specialist)? Give summary @ -No Was smoking cessation discussed for >3mins.? @ -No Was critical care preformed (if so, how long)? @ -No Were there social determinants of health that impacted care today? How? (Homelessness, low income, unemployed, alcoholism, drug addiction, transportation, low edu. Level, literacy, decrease access to med. care, fci, rehab)? @ -No Was there de-escalation of care discussed even if they declined (Discuss DNR or withdrawal of care, Hospice)? DNR status @ -No What co-morbidities impacted this encounter? (DM, HTN, Smoking, COPD, CAD, Ca ncer, CVA, ARF, Chemo, Hep., AIDS, mental health diagnosis, sleep apnea, morbid obesity)? @ -None Was patient admitted / discharged? Hospital course, mention meds given and route, prescriptions, significant lab abnormalities, going to OR and other pertinent info. @ -33-year-old male presenting with chief complaint of testicular pain. Urine shows no infectious process. Ultrasound shows epididymoorchitis. Testing for gonorrhea and chlamydia sent out. Patient will be treated with Rocephin and doxycycline. He is educated on today's findings and treatment plan. Discharged home. Follow-up with PCP. Report back to ER with any new or worsening symptoms. Discussed return parameters and answered all questions. Patient conveyed verbal understanding and agreed to the plan. I discussed this case in detail with my attending Dr. Abarca Undiagnosed new problem with uncertain prognosis? @ -No Drug Therapy requiring intensive monitoring for toxicity (Heparin, Nitro, Insulin, Cardizem)? @ -No Were any procedures done? @ -No Diagnosis/symptom? @ -Epididymoorchitis Acute, or Chronic, or Acute on Chronic? @ -Acute Uncomplicated (without systemic symptoms) or Complicated (systemic symptoms)? @ -uncomplicated Side effects of treatment? @ -No Exacerbation, Progression, or Severe Exacerbation? @ -No Poses a threat to life or bodily function? How? (Chest pain, [place], [place], pneumonia, PE, COPD, DKA, ARF, appy, cholecystitis, CVA, Diverticulitis, Homicidal, Suicidal, threat to staff... and all critical care pts) @ -Low likelihood - Lab Data Result diagrams: 12/16/23 18:47 12/16/23 18:47 Lab Results 12/16/23 12/16/23 12/16/23 Range/Units 18:47 18:47 18:47 WBC 9.7 (3.8-10.6) k/uL RBC 4.18 L (4.30-5.90) m/uL Hgb 12.8 L (13.0-17.5) gm/dL Hct 37.5 L (39.0-53.0) % MCV 89.8 (80.0-100.0) fL MCH 30.7 (25.0-35.0) pg MCHC 34.2 (31.0-37.0) g/dL RDW 12.9 (11.5-15.5) % Plt Count 361 (150-450) k/uL MPV 6.5 Neutrophils % 65 % Lymphocytes % 26 % Monocytes % 7 % Eosinophils % 1 % Basophils % 0 % Neutrophils # 6.3 (1.3-7.7) k/uL Lymphocytes # 2.5 (1.0-4.8) k/uL Monocytes # 0.7 (0-1.0) k/uL Eosinophils # 0.1 (0-0.7) k/uL Basophils # 0.0 (0-0.2) k/uL Sodium 138 (137-145) mmol/L Potassium 4.0 (3.5-5.1) mmol/L Chloride 106 (98-107) mmol/L Carbon Dioxide 27 (22-30) mmol/L Anion Gap 5 mmol/L BUN 11 (9-20) mg/dL Creatinine 1.10 (0.66-1.25) mg/dL Est GFR (CKD-EPI)AfAm >90 (>60 ml/min/1.73 sqM) Est GFR (CKD-EPI)NonAf 89 (>60 ml/min/1.73 sqM) Glucose 88 (74-99) mg/dL Calcium 8.9 (8.4-10.2) mg/dL Total Bilirubin 0.3 (0.2-1.3) mg/dL AST 23 (17-59) U/L ALT 11 (4-49) U/L Alkaline Phosphatase 54 (38-126) U/L Total Protein 6.3 (6.3-8.2) g/dL Albumin 3.7 (3.5-5.0) g/dL Urine Color Yellow Urine Appearance Clear (Clear) Urine pH 6.5 (5.0-8.0) Ur Specific [place] 1.022 (1.001-1.035) Urine Protein Negative (Negative) Urine Glucose (UA) Negative (Negative) Urine Ketones Negative (Negative) Urine Blood Negative (Negative) Urine Nitrite Negative (Negative) Urine Bilirubin Negative (Negative) Urine Urobilinogen <2.0 (<2.0) mg/dL Ur Leukocyte Esterase Negative (Negative) Disposition Clinical Impression: Epididymo-orchitis Disposition: HOME SELF-CARE Condition: Good Instructions (If sedation given, give patient instructions): Epididymo-Orchitis (ED) Additional Instructions: Follow-up with PCP. Report back to ER with any new or worsening symptoms. Take medication as prescribed. Prescriptions: Doxycycline [Vibramycin] 100 mg PO BID 10 Days #20 capsule Is patient prescribed a controlled substance at d/c from ED?: No Referrals: Concepcion Keene MD [Primary Care Provider] - 1-2 days Time of Disposition: 20:32
[2023-12-16] MEDS: DOXYCYCLINE 100 MG CAP PO STA (20:46)
[2023-12-16] MEDS: cefTRIAXone 250 MG VIAL IV STA (20:51)
[2023-12-16 21:11] VITALS: BP 124/84; PULSE 72; RESP 16
[2023-12-18 14:19] LABS: C. trachomatis,PCR Negative (Negative)
[2023-12-18 14:24] LABS: N. gonorrhoeae,PCR Negative (Negative)
== END 2023-12-16 21:12 | disposition home or self-care (01) ==
LOC: EC 18:09
DX: N45.3 Epididymo-orchitis (principal); F17.290 Nicotine dependence, other tobacco product, uncomplicated
CPT/HCPCS: 36415; 80053; 85025; 81003; 87491; 87591; 93975; 76870; 99284; 96374; 96375; 96376; J0696; J1885